=== PATIENT | female | born 1945 | race Caucasian/White ===

== ENCOUNTER 2019-03-17 15:55 | Emergency (ER) | payer MEDICARE, MEDICAID ==
[2019-03-17 16:48] LABS: BASOPHILS % (AUTO) 0.5 %; EOSINOPHILS % (AUTO) 0.1 %; HGB - HEMOGLOBIN 13.6 g/dL (12.0-16.0); LYMPHOCYTES # (AUTO) 0.6 10^3/uL (1.5-3.5); LYMPHOCYTES % (AUTO) 9.2 %; MEAN CORPUSCULAR HEMOGLOBIN 30.8 pg (27.0-31.0); MEAN CORPUSCULAR HGB CONC 33.3 g/dL (32.0-36.0); MEAN CORPUSCULAR VOLUME 92.6 fL (81.0-99.0); MEAN PLATELET VOLUME 7.5 fL (7.9-10.8); MONOCYTES # (AUTO) 0.3 10^3/uL (0.0-1.0); MONOCYTES % (AUTO) 4.3 %; NEUTROPHILS # (AUTO) 5.9 10^3/uL (1.5-6.6); NEUTROPHILS % (AUTO) 85.9 %; PLT - PLATELET COUNT 245 10^3/uL (130-450); RED BLOOD COUNT 4.41 10^6/uL (4.20-5.40); RED CELL DISTRIBUTION WIDTH 13.3 % (12.0-15.0); WHITE BLOOD COUNT 6.8 x10^3/uL (4.8-10.8)
[2019-03-17 17:01] LABS: ALBUMIN 4.7 g/dL (3.2-5.5); ALBUMIN/GLOBULIN RATIO 1.6 (1.0-2.2); BILIRUBIN,TOTAL 0.7 mg/dL (0.2-1.0); CALCIUM 9.4 mg/dL (8.5-10.3); CREATININE 0.6 mg/dL (0.4-1.0); TOTAL PROTEIN 7.7 g/dL (6.7-8.2)
[2019-03-17 17:19] LABS: BILIRUBIN,URINE NEGATIVE (NEGATIVE); GLUCOSE, URINE (UA) NEGATIVE (NEGATIVE); KETONES,URINE (UA) 15 mg/dL (NEGATIVE); LEUKOCYTE ESTERASE, URINE NEGATIVE (NEGATIVE); NITRITE,URINE NEGATIVE (NEGATIVE); OCCULT BLOOD,URINE NEGATIVE (NEGATIVE); PH,URINE 5.5 PH (5.0-7.5); PROTEIN,URINE NEGATIVE (NEGATIVE); UROBILINOGEN,URINE 0.2 (NORMAL) E.U./dL (NORMAL)
[2019-03-17 17:22] LABS: CLARITY,URINE CLEAR (CLEAR)
[2019-03-17] MEDS ORDERED: KETOROLAC 15 MG/ML VIAL IVP STA (17:51)
[2019-03-17] MEDS ORDERED: LACTATED RINGERS 2,000 ML IV STA (17:51)
--- NOTE | 2019-03-17 17:53 | ED Physician Documentation ---
PD HPI ABD PAIN - Stated complaint Stated Complaint: FEMALE - Chief complaint Chief Complaint: Abd Pain - History obtained from History obtained from: Patient - History of Present Illness Timing - onset: Today (73-year-old woman is no other chronic medical conditions presents with stomach cramps and diarrhea that started early this morning. She denies recent travel, antibiotics, fevers, or sick contacts.) Review of Systems Ten Systems: 10 systems reviewed and negative Constitutional: denies: Fever, Chills GI: reports: Abdominal Pain, Nausea, Diarrhea. denies: Vomiting, Constipation, Hematemesis, Bloody / black stool PD PAST MEDICAL HISTORY - Past Medical History Past Medical History: No - Allergies Allergies/Adverse Reactions: Allergies Allergy/AdvReac Type Severity Reaction Status Date / Time Penicillins Allergy Emesis Verified 03/17/19 16:31 - Living Situation Living Arrangement: reports: Assisted living - Social History Does the pt smoke?: No PD ED PE NORMAL - Vitals Vital signs reviewed: Yes - General General: Alert and oriented X 3, No acute distress - Abdomen Abdomen: Normal bowel sounds, Soft, Non tender - Neuro Neuro: Alert and oriented X 3, Normal speech - Psych Psych: Normal mood, Normal affect Results - Vitals Vitals: Vital Signs - 24 hr 03/17/19 03/17/19 03/17/19 16:28 18:38 18:49 Temperature 37.4 C 37.3 C Heart Rate 96 68 64 Respiratory 15 16 18 Rate Blood Pressure 132/70 H 116/56 L 116/59 L O2 Saturation 97 96 98 Oxygen O2 Source Room air - Labs Labs: Laboratory Tests 03/17/19 03/17/19 03/17/19 16:30 16:43 16:43 WBC 6.8 RBC 4.41 Hgb 13.6 Hct 40.8 MCV 92.6 MCH 30.8 MCHC 33.3 RDW 13.3 Plt Count 245 MPV 7.5 L Neut # (Auto) 5.9 Lymph # (Auto) 0.6 L [place] # (Auto) 0.3 Eos # (Auto) 0.0 Baso # (Auto) 0.0 Absolute Nucleated RBC 0.00 Nucleated RBC % 0.0 Sodium 136 Potassium 3.4 L Chloride 103 Carbon Dioxide 22 Anion Gap 11.0 BUN 12 Creatinine 0.6 Estimated GFR (MDRD) 99 Glucose 112 H Calcium 9.4 Total Bilirubin 0.7 AST 18 ALT 16 Alkaline Phosphatase 64 Total Protein 7.7 Albumin 4.7 Globulin 3.0 Albumin/Globulin Ratio 1.6 Lipase 32 Urine Color YELLOW Urine Clarity CLEAR Urine pH 5.5 Ur Specific Mineral 1.020 Urine Protein NEGATIVE Urine Glucose (UA) NEGATIVE Urine Ketones 15 H Urine Occult Blood NEGATIVE Urine Nitrite NEGATIVE Urine Bilirubin NEGATIVE Urine Urobilinogen 0.2 (NORMAL) Ur Leukocyte Esterase NEGATIVE Ur Microscopic Review NOT INDICATED Urine Culture Comments NOT INDICATED PD MEDICAL DECISION MAKING - ED course ED course: 73-year-old woman with diarrhea and cramps. No risk factors for bacterial or C. difficile cause. She was unable to produce a stool sample here. After the administration of IV fluids and Toradol she felt much better. Departure - Departure Disposition: 01 Home, Self Care Clinical Impression: Diarrhea Condition: Good Record reviewed to determine appropriate education?: Yes Instructions: ED Diarrhea Viral Comments: Return if not better in 24 hours, anytime if worse or if you develop fevers or severe pain. Discharge Date/Time: 03/17/19 19:02
[2019-03-17 18:49] VITALS: BP 116/59
== END 2019-03-17 19:02 | disposition home or self-care (01) ==
LOC: ED 15:55
DX: R19.7 Diarrhea, unspecified (principal); R10.9 Unspecified abdominal pain; R11.0 Nausea
CPT/HCPCS: 36415; 80053; 81003; 83690; 85025; 96374; 99283; J7120; 81001; 87086

== ENCOUNTER 2019-04-28 08:31 | Outpatient (CLI) | payer MEDICARE, MEDICAID ==
[2019-04-28 12:53] LABS: BASOPHILS # (AUTO) 0.1 10^3/uL (0.0-0.1); BASOPHILS % (AUTO) 1.2 %; EOSINOPHILS # (AUTO) 0.1 10^3/uL (0.0-0.7); EOSINOPHILS % (AUTO) 1.8 %; HGB - HEMOGLOBIN 12.9 g/dL (12.0-16.0); LYMPHOCYTES % (AUTO) 29.6 %; MEAN CORPUSCULAR HEMOGLOBIN 31.3 pg (27.0-31.0); MEAN CORPUSCULAR HGB CONC 32.8 g/dL (32.0-36.0); MEAN CORPUSCULAR VOLUME 95.4 fL (81.0-99.0); MONOCYTES # (AUTO) 0.7 10^3/uL (0.0-1.0); MONOCYTES % (AUTO) 10.1 %; NEUTROPHILS # (AUTO) 3.8 10^3/uL (1.5-6.6); NEUTROPHILS % (AUTO) 56.8 %; PLT - PLATELET COUNT 245 10^3/uL (130-450); RED BLOOD COUNT 4.12 10^6/uL (4.20-5.40); RED CELL DISTRIBUTION WIDTH 13.3 % (12.0-15.0); WHITE BLOOD COUNT 6.6 x10^3/uL (4.8-10.8)
[2019-04-28 13:19] LABS: ALBUMIN 4.7 g/dL (3.2-5.5); ALBUMIN/GLOBULIN RATIO 1.5 (1.0-2.2); ALKALINE PHOSPHATASE 77 IU/L (42-121); ALT ALANINE AMINOTRANSFERASE 18 IU/L (10-60); AST ASPARTATE AMINOTRANSFERASE 23 IU/L (10-42); BILIRUBIN,TOTAL 1.4 mg/dL (0.2-1.0); BUN - BLOOD UREA NITROGEN 13 mg/dL (6-20); CALCIUM 9.6 mg/dL (8.5-10.3); CARBON DIOXIDE - CO2 23 mmol/L (21-32); CHLORIDE 102 mmol/L (101-111); CHOL/HDL RATIO 1.8 (<4.4); CHOLESTEROL 211 mg/dL; CREATININE 0.8 mg/dL (0.4-1.0); GFR - MDRD 71 (>89); GLUCOSE 113 mg/dL (70-100); HDL CHOLESTEROL 118 mg/dL; LDL CHOLESTEROL,CALCULATED 80 mg/dL; LDL/HDL RATIO 0.7 (<4.4); SODIUM 136 mmol/L (135-145); TOTAL PROTEIN 7.9 g/dL (6.7-8.2); VLDL CHOLESTEROL 13 mg/dL
[2019-04-28 13:22] LABS: THYROID STIMULATING HORMONE 2.1 uIU/mL (0.34-5.60)
[2019-04-28 13:34] LABS: FOLATE 15.97 ng/mL (5.90 - >24.8)
== END 2019-04-28 08:32 | disposition home or self-care (01) ==
LOC: LAB.WCP 08:31
PROVIDERS: ATTEND Physician Assistant
DX: G60.9 Hereditary and idiopathic neuropathy, unspecified (principal); E78.5 Hyperlipidemia, unspecified; R41.3 Other amnesia
CPT/HCPCS: 36415; 80053; 80061; 82607; 82746; 83721; 84443; 85025

== ENCOUNTER 2020-02-28 09:29 | Outpatient (CLI) | payer MEDICARE, MEDICAID | END 2020-02-28 09:30 | disposition critical access hospital (66) | LOC: EMS 09:29 | PROVIDERS: ATTEND Surgery | DX: R47.9 Unspecified speech disturbances (principal); R29.810 Facial weakness | CPT/HCPCS: A0425; A0429 ==

== ENCOUNTER 2020-02-28 09:49 | Inpatient (IN) | payer MEDICARE, MEDICAID ==
--- NOTE | 2020-02-28 10:18 | CT Report ---
Reason: onset aphasia/facial droop Procedure Date: 02/28/2020 Accession Number: [id number] / [id number] Procedure: CT - Head W/O Stroke Protocol CPT Code: Final Report FULL RESULT: EXAM: CT HEAD EXAM DATE: 02/28/2020 10:08 AM. CLINICAL HISTORY: 74-year-old woman with aphasia and right facial droop. COMPARISON: None. TECHNIQUE: Multiaxial CT images were obtained from the foramen magnum to the vertex. Reformats: Sagittal and coronal. IV contrast: None. In accordance with CT protocol optimization, one or more of the following dose reduction techniques were utilized for this exam: automated exposure control, adjustment of mA and/or KV based on patient size, or use of iterative reconstructive technique. FINDINGS: Parenchyma: No hemorrhage. Roldan-white differentiation is intact. ASPECTS: 10. Defect in the left cerebral hemisphere is consistent with a remote lacunar infarct. Ventricles and Extra-axial Spaces: Ventricles are symmetric and normal in size for age. No extra-axial hemorrhage or fluid collection. Orbits: Unremarkable except for bilateral lens replacement surgery. Sinuses: Paranasal sinuses and mastoid air cells are clear. Extracranial Soft Tissues and Bones: Soft tissues are unremarkable. No fractures. IMPRESSION: 1. No acute intracranial abnormality. Specifically, no evidence of acute infarct, hemorrhage, or mass lesion at this time. 2. 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 RADIA The critical test notification system was initiated by Dr. Carmine Lewis at 10:14 AM on 02/28/2020. The above critical test findings were discussed with Scott Solis by Dr. Carmine Lewis at 10:16 AM on 02/28/2020.
[2020-02-28] MEDS ORDERED: IOVERSOL 320 100 ML VIAL IVP ONE ×2 (10:24→14:17)
--- NOTE | 2020-02-28 10:33 | ED Physician Documentation ---
PD HPI FOCAL NEURO - Stated complaint Stated Complaint: POSS STROKE - Chief complaint Chief Complaint: Neuro - History obtained from History obtained from: Patient - History of Present Illness Timing - onset: Last night (The patient was last seen normal last evening at 10 PM. This morning upon being awakened by staff, she is noted to be aphasic and a right facial droop. She denied any headache. No apparent fall or injury. There was no obvious notable weakness of the arm or leg. This is unusual for her as she is usually able to talk. No known prior strokes.), Unknown Timing - details: Still present, Other (unknown onset pattern) Weakness: Face, Right. No: Arm, Leg Associated symptoms: No: Headache, Nausea / vomiting Contributing factors: negative: Anticoagulated, Atrial fibrillation Baseline status: positive: A&OX3, ambulatory, indep, Mildly confused Similar symptoms before: Has not had sx before Review of Systems Unable to obtain: Other (she is able to answer with nodding yes and no) Constitutional: denies: Fever Nose: denies: Rhinorrhea / runny nose, Congestion Throat: denies: Sore throat Respiratory: denies: Cough GI: denies: Vomiting, Diarrhea Neurologic: reports: Focal weakness. denies: Near syncope, Headache, Head injury Immunocompromised: denies: Immunocompromised PD PAST MEDICAL HISTORY - Past Medical History Cardiovascular: None Respiratory: None Neuro: Dementia (mild) Endocrine/Autoimmune: None - Past Surgical History Past Surgical History: Yes HEENT: Tonsil/Adenoidectomy - Present Medications Home Medications: Ambulatory Orders Medication Instructions Recorded Confirmed Acetaminophen [Tylenol] 325 - 650 mg PO TID PRN 02/28/20 02/28/20 Amlodipine Besylate 10 mg PO DAILY 02/28/20 02/28/20 Atorvastatin Calcium 40 mg PO QPM 02/28/20 02/28/20 Benazepril HCl 20 mg PO DAILY 02/28/20 02/28/20 Cholecalciferol (Vitamin D3) 2,000 unit PO DAILY 02/28/20 02/28/20 [Vitamin D3] Cyanocobalamin (Vitamin B-12) 1,000 mcg PO BID 02/28/20 02/28/20 [Vitamin B-12 (1000 mcg sublingual)] Donepezil HCl 10 mg PO QPM 02/28/20 02/28/20 Gabapentin 600 mg PO BID 02/28/20 02/28/20 Prochlorperazine [Compazine] 5 mg PO TID PRN 02/28/20 02/28/20 Tramadol HCl 50 mg PO DAILY PRN 02/28/20 02/28/20 Triamcinolone 0.1% Cream [Kenalog 1 applic TOP QPM PRN 02/28/20 02/28/20 0.1% Cream] - Allergies Allergies/Adverse Reactions: Allergies Allergy/AdvReac Type Severity Reaction Status Date / Time Penicillins Allergy Emesis Verified 03/17/19 16:31 aspirin AdvReac Unknown Verified 02/28/20 10:18 codeine AdvReac Unknown Verified 02/28/20 10:19 hydrocodone [From Vicodin] AdvReac Nausea Verified 02/28/20 10:20 morphine AdvReac Nausea Verified 02/28/20 10:20 shellfish derived AdvReac Unknown Verified 02/28/20 10:20 thyme AdvReac Unknown Verified 02/28/20 10:20 - Social History Does the pt smoke?: No Smoking Status: Never smoker Does the pt drink ETOH?: No Does the pt have substance abuse?: No - Family History Family history: denies: Cerebral aneurysm PD ED PE NORMAL - Vitals Vital signs reviewed: Yes - General General: Alert and oriented X 3, Well developed/nourished - HEENT HEENT: Atraumatic, Pharynx benign - Neck Neck: Supple, no meningeal sign, No adenopathy - Cardiac Cardiac: RRR, No murmur - Respiratory Respiratory: Clear bilaterally - Abdomen Abdomen: Soft, Non tender - Derm Derm: Normal color, Warm and dry - Neuro Neuro: Alert and oriented X 3, Normal speech, Other (right facial droop. Unable to speak verbally. ) NIHSS - Level of Consciousness Level of consciousness: (0) Alert, Keenly responsive LOC Questions: (0) Answers both Q's correct LOC Commands: (0) Performs both correctly - Gaze Best Gaze: (0) Normal - Visual Visual: (0) No loss - Facial Palsy Facial Palsy: (2) Partial paralysis - Motor Arms (both separate) Motor Arm (right): (0) No drift Motor Arm (left): (0) No drift - Motor Legs (both separate) Motor Leg (right): (0) No drift Motor Leg (left): (0) No drift - Limb Ataxia Limb Ataxia: (0) Absent - Sensory Sensory: (0) Normal - Best Language Best Language: (2) Severe aphasia - Dysarthria Dysarthria: (0) Normal - Extinction and Inattention (formally neg Extinction and inattention: (0) No abnormality - Total Score/Results Total Score/Result: 4 Results - Vitals Vitals: Vital Signs - 24 hr 02/28/20 02/28/20 02/28/20 10:10 10:16 10:48 Temperature 36.8 C 36.7 C Heart Rate 89 86 80 Respiratory 16 16 10 L Rate Blood Pressure 123/64 117/36 L 123/57 L O2 Saturation 95 97 100 Oxygen O2 Source Room air - Labs Labs: Laboratory Tests 02/28/20 02/28/20 02/28/20 10:30 10:30 10:30 WBC 5.3 RBC 3.84 L Hgb 12.8 Hct 36.8 L MCV 95.8 MCH 33.3 H MCHC 34.8 RDW 12.1 Plt Count 214 MPV 9.0 Neut # (Auto) 3.1 Lymph # (Auto) 1.6 [place] # (Auto) 0.5 Eos # (Auto) 0.0 Baso # (Auto) 0.1 Absolute Nucleated RBC 0.00 Nucleated RBC % 0.0 PT 10.8 INR 0.9 APTT 30.5 Sodium 134 L Potassium 3.9 Chloride 102 Carbon Dioxide 21 Anion Gap 11.0 BUN 12 Creatinine 0.6 Estimated GFR (MDRD) 98 Glucose 112 H Calcium 8.8 Magnesium 1.8 Total Bilirubin 0.7 AST 18 ALT 15 Alkaline Phosphatase 68 Troponin I High Sens Total Protein 7.1 Albumin 4.1 Globulin 3.0 Albumin/Globulin Ratio 1.4 Lipase 30 02/28/20 10:30 WBC RBC Hgb Hct MCV MCH MCHC RDW Plt Count MPV Neut # (Auto) Lymph # (Auto) [place] # (Auto) Eos # (Auto) Baso # (Auto) Absolute Nucleated RBC Nucleated RBC % PT INR APTT Sodium Potassium Chloride Carbon Dioxide Anion Gap BUN Creatinine Estimated GFR (MDRD) Glucose Calcium Magnesium Total Bilirubin AST ALT Alkaline Phosphatase Troponin I High Sens 2.4 Total Protein Albumin Globulin Albumin/Globulin Ratio Lipase - Rads (name of study) head CT Radiology: Prelim report reviewed (no ICH), Discussed with rads, See rad report head and neck angio Radiology: Prelim report reviewed, Discussed with rads (distal MCA occlusion at distal M2/M3 level on left, which would be c/w her symptoms. ), See rad report PD MEDICAL DECISION MAKING - ED course Complexity details: reviewed results, re-evaluated patient (apparent new stroke. ), considered differential, d/w patient, d/w family (I talked with her 2 brothers by phone to update on the findings and treatment plan (after asking patient). ), d/w construction safety consultant ([facility] - not interventionable as too distal, and not candidate for TPA based on unknown onset time. 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
--- NOTE | 2020-02-28 10:37 | CT Report ---
Reason: right facial droop/aphasia Procedure Date: 02/28/2020 Accession Number: [id number] / [id number] Procedure: CT - ANGIO HEAD W/WO CPT Code: Final Report FULL RESULT: EXAM: CT ANGIOGRAM HEAD. CT SCAN OF THE HEAD WITH CONTRAST. EXAM DATE: 02/28/2020 10:12 AM CLINICAL HISTORY: 74-year-old woman with right facial droop and aphasia. COMPARISON: HEAD W/O STROKE PROTOCOL 02/28/2020 9:54 AM. TECHNIQUE: - CT Scan Head: Using a multidetector scanner, axial images were acquired from the foramen magnum to the skull vertex prior to and following contrast administration. - CT Angiogram: Using a multidetector scanner, high-resolution axial images were acquired from the skull base through vertex following rapid infusion of intravenous contrast. Reformats: Multiplanar MIP reformats were reconstructed. NASCET criteria used for stenosis measurement. IV Contrast: 80 cc OPTIRAY 320. In accordance with CT protocol optimization, one or more of the following dose reduction techniques were utilized for this exam: automated exposure control, adjustment of mA and/or KV based on patient size, or use of iterative reconstructive technique. FINDINGS: CTA HEAD: RIGHT: - Visualized Internal Carotid: Patent without significant stenosis or aneurysm. There is mild atherosclerotic plaque along the siphon. - Anterior Cerebral: Patent without significant stenosis or aneurysm. The A1 segment is hypoplastic, a normal variant. Distal branches are primarily supplied by the anterior communicating artery. - Middle Cerebral: Patent without significant stenosis or aneurysm. - Posterior Cerebral: Patent without significant stenosis or aneurysm. The artery is primarily supplied by the posterior communicating artery, but there is a small, patent P1 segment. - Posterior Communicating: Patent. No aneurysm. - Visualized Vertebral: Patent without significant stenosis or dissection. Mild atherosclerotic plaque is present along the intradural segment. The PICA is patent. LEFT: - Visualized Internal Carotid: Patent without significant stenosis or aneurysm. There is mild atherosclerotic plaque along the siphon. - Anterior Cerebral: Patent without significant stenosis or aneurysm. - Middle Cerebral: The M1 and proximal M2 segments are patent without significant stenosis. There is abrupt narrowing and occlusion of an M2-M3 junction in the anterior to mid sylvian fissure (for example, image 49, series 11 and images 144-152, series 5). - Posterior Cerebral: Patent without significant stenosis or aneurysm. The artery is primarily supplied by the posterior communicating artery, but there is a small, patent P1 segment. - Posterior Communicating: Patent. No aneurysm. - Visualized Vertebral: Patent without significant stenosis or dissection. The PICA is patent. CENTRAL: - Anterior Communicating: Patent. No aneurysm. - Basilar: Patent without significant stenosis, dissection, or aneurysm. Dural Venous Sinuses and Major Central Veins: Patent. POSTCONTRAST HEAD: No abnormal enhancement. IMPRESSION: 1. 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 No proximal large vessel occlusion. RADIA The call report notification system was initiated by Dr. Carmine Lewis at 10:32 AM on 02/28/2020. The above call report findings were discussed with Scott Solis by Dr. Carmine Lewis at 10:34 AM on 02/28/2020.
[2020-02-28 10:39] LABS: BASOPHILS # (AUTO) 0.1 10^3/uL (0.0-0.1); BASOPHILS % (AUTO) 0.9 %; EOSINOPHILS % (AUTO) 0.8 %; HGB - HEMOGLOBIN 12.8 g/dL (12.0-16.0); LYMPHOCYTES # (AUTO) 1.6 10^3/uL (1.5-3.5); LYMPHOCYTES % (AUTO) 29.9 %; MEAN CORPUSCULAR HEMOGLOBIN 33.3 pg (27.0-31.0); MEAN CORPUSCULAR HGB CONC 34.8 g/dL (32.0-36.0); MEAN CORPUSCULAR VOLUME 95.8 fL (81.0-99.0); MONOCYTES # (AUTO) 0.5 10^3/uL (0.0-1.0); MONOCYTES % (AUTO) 9.5 %; NEUTROPHILS # (AUTO) 3.1 10^3/uL (1.5-6.6); NEUTROPHILS % (AUTO) 58.7 %; PLT - PLATELET COUNT 214 10^3/uL (130-450); RED BLOOD COUNT 3.84 10^6/uL (4.20-5.40); RED CELL DISTRIBUTION WIDTH 12.1 % (12.0-15.0); WHITE BLOOD COUNT 5.3 x10^3/uL (4.8-10.8)
--- NOTE | 2020-02-28 10:40 | CT Report ---
Reason: right facial droop/aphasia Procedure Date: 02/28/2020 Accession Number: [id number] / [id number] Procedure: CT - ANGIO NECK W CPT Code: Final Report FULL RESULT: EXAM: CT ANGIOGRAM NECK EXAM DATE: 02/28/2020 10:12 AM. CLINICAL HISTORY: 74-year-old woman with right facial droop and aphasia. COMPARISON: HEAD W/O STROKE PROTOCOL 02/28/2020 9:54 AM. TECHNIQUE: Routine axial helical imaging was performed from the skull base through the aortic arch. Reconstructions: Routine multiplanar 3D MIP reconstructions. IV Contrast: 80 cc OPTIRAY 320. Evaluation of arterial stenosis is based on a NASCET method of measurement. In accordance with CT protocol optimization, one or more of the following dose reduction techniques were utilized for this exam: automated exposure control, adjustment of mA and/or KV based on patient size, or use of iterative reconstructive technique. FINDINGS: RIGHT: - Common and Internal Carotid: Patent without signficant stenosis. There is mild calcified atherosclerotic plaque at the bifurcation. Stenosis by NASCET criteria: 0%. The distal cervical ICA is tortuous, but no evidence of dissection. - External Carotid: Unremarkable. - Vertebral: Patent without significant stenosis. No evidence of dissection. LEFT: - Common and Internal Carotid: Patent without signficant stenosis. There is mild calcified atherosclerotic plaque at the bifurcation. Stenosis by NASCET criteria: 0%. The cervical ICA is tortuous, but no evidence of dissection. - External Carotid: Unremarkable. - Vertebral: Patent without significant stenosis. No evidence of dissection. SOFT TISSUES AND BONES: Small hypoattenuating nodules are present in the right lobe of the thyroid. Otherwise, visualized soft tissues are unremarkable. Lung apices are clear. No evidence of acute fracture or malalignment of the cervical spine. IMPRESSION: 1. Carotid and vertebral arteries are patent without significant stenosis or dissection. RADIA The above call report findings were discussed with Scott Solis by Dr. Carmine Lewis at 10:34 AM on 02/28/2020.
[2020-02-28 10:47] LABS: INR 0.9 (0.8-1.2); PT - PROTHROMBIN TIME 10.8 secs (9.9-12.6)
[2020-02-28 10:51] LABS: ALBUMIN 4.1 g/dL (3.2-5.5); ALBUMIN/GLOBULIN RATIO 1.4 (1.0-2.2); BILIRUBIN,TOTAL 0.7 mg/dL (0.2-1.0); CALCIUM 8.8 mg/dL (8.5-10.3); CREATININE 0.6 mg/dL (0.4-1.0); MAGNESIUM 1.8 mg/dL (1.7-2.8); TOTAL PROTEIN 7.1 g/dL (6.7-8.2)
[2020-02-28 10:54] LABS: PARTIAL THROMBOPLASTIN TIME 30.5 secs (24.9-33.3)
[2020-02-28] MEDS ORDERED: ONDANSETRON 4 MG/2 ML VIAL IVP PRN (11:10)
[2020-02-28] MEDS ORDERED: ACETAMINOPHEN 325 MG TABLET PO PRN (11:10)
[2020-02-28] MEDS ORDERED: SODIUM CHLORIDE FLUSH 0.9% 10 ML SYRINGE IVP PRN (11:10)
--- NOTE | 2020-02-28 11:42 | HISTORY & PHYSICAL EXAMINATION ---
Chief Complaint - Chief Complaint Chief Complaint: Difficulty speaking History of Present Illness - Admitted From Admitted From:: [facility] - History Obtained From Records Reviewed: Yes History obtained from: Patient, ER Physician, EMR - History of Present Illness HPI Comment/Other: This is a 74-year-old female with a past medical history significant for hypertension, neuropathy, dementia who presents from [facility] due to difficulty speaking. He was last seen normal yesterday evening at around 10 PM. This morning when she was awakened by the staff, she was found to have a right-sided facial droop and expressive aphasia. The patient states that she has never had similar symptoms in the past. She does not recall having a stroke before. She denies any headaches, blurry vision. She does have numbness which is chronic for her and for which she takes gabapentin. She reports no weakness in her upper or lower extremities. Denies any fevers, chills, nausea, vomiting, chest pain, dyspnea, rash. In the emergency department, she is on be afebrile temperature of 36.8 C. Her heart rate was 89. Her blood pressure is 123/64. She was not tachypneic and saturating well on room air. CT of the head showed no acute abnormalities but did show a remote lacunar infarct in the left cerebellar hemisphere. CT of the head showed occlusion of a distal left MCA M2 to M3 junction but no proximal large vessel occlusion. CTA of the neck was unremarkable. Her labs were unremarkable. Given her presentation and concern for stroke, medicine was consulted for admission. I did discuss goals of care the patient she would like to be a full code. History - Past Medical History Cardiovascular: reports: Hypertension, High cholesterol Neuro: reports: Peripheral neuropathy, Other (Mild cognitive impairment) - Past Surgical History HEENT: reports: Tonsil/Adenoidectomy - Family & Social History Family History Comment/Other: She reports her father had hypertension but otherwise not recall any family history. Living arrangement: Assisted living Social History Notes: She resides at [facility] and had living there for nearly 2 years. She does not smoke and drinks alcohol socially. She previously lived in [place] but now lives here to be close to her brother. - Substance History Use: Uses substance without health or social issues: NONE Meds/Allgy - Home Medications Home Medications: Ambulatory Orders Medication Instructions Recorded Confirmed Acetaminophen [Tylenol] 325 - 650 mg PO TID PRN 04/29/20 04/29/20 Amlodipine Besylate 10 mg PO DAILY 02/28/20 02/28/20 Atorvastatin Calcium 40 mg PO QPM 02/28/20 02/28/20 Benazepril HCl 20 mg PO DAILY 02/28/20 02/28/20 Cholecalciferol (Vitamin D3) 2,000 unit PO DAILY 02/28/20 02/28/20 [Vitamin D3] Cyanocobalamin (Vitamin B-12) 1,000 mcg PO BID 02/28/20 02/28/20 [Vitamin B-12 (1000 mcg sublingual)] Donepezil HCl 10 mg PO QPM 02/28/20 02/28/20 Gabapentin 600 mg PO BID 02/28/20 02/28/20 Prochlorperazine [Compazine] 5 mg PO TID PRN 02/28/20 02/28/20 Tramadol HCl 50 mg PO DAILY PRN 02/28/20 02/28/20 Triamcinolone 0.1% Cream [Kenalog 1 applic TOP QPM PRN 02/28/20 02/28/20 0.1% Cream] - Allergies Allergies/Adverse Reactions: Allergies Allergy/AdvReac Type Severity Reaction Status Date / Time Penicillins Allergy Emesis Verified 03/17/19 16:31 aspirin AdvReac Unknown Verified 02/28/20 10:18 codeine AdvReac Unknown Verified 02/28/20 10:19 hydrocodone [From Vicodin] AdvReac Nausea Verified 02/28/20 10:20 morphine AdvReac Nausea Verified 02/28/20 10:20 shellfish derived AdvReac Unknown Verified 02/28/20 10:20 thyme AdvReac Unknown Verified 02/28/20 10:20 Review of Systems - Constitutional Constitutional: denies: Fatigue, Fever, Weakness - Eyes Eyes: denies: Blurred vision - Cardiovascular Cariovascular: denies: Chest pain, Exertional dyspnea, Decr. exercise tolerance - Respiratory Respiratory: denies: Cough, SOB at rest, SOB with exertion - Gastrointestinal Gastrointestinal: denies: Abdominal pain, Nausea, Vomiting - Genitourinary Genitourinary: denies: Dysuria, Frequency, Urgency - Musculoskeletal Musculoskeletal: denies: Muscle pain, Limited range of motion, Muscle weakness - Integumentary Integumentary: denies: Rash - Neurological Neurological: reports: Numbness, Slurred speech. denies: General weakness, Focal weakness, Headache, Dizziness, Memory problems, Pre-existing deficit, Abnormal gait - All Other Systems All Other Systems: reports: Reviewed and negative Prior Level of Functionality: She resides at [facility] living but is independent. Exam - Vital Signs Reviewed Vital Signs: Yes Vital Signs: Vital Signs x48h Temp Pulse Resp BP Pulse Ox 02/28/20 11:16 68 13 115/62 96 02/28/20 10:48 80 10 L 123/57 L 100 02/28/20 10:16 36.7 C 86 16 117/36 L 97 02/28/20 10:10 36.8 C 89 16 123/64 95 - Physical Exam General Appearance: positive: No acute distress, Alert Eyes Bilateral: positive: Normal inspection, Conjunctivae nml ENT: positive: ENT inspection nml Neck: positive: Nml inspection Respiratory: positive: No respiratory distress. negative: Wheezes, Rales Cardiovascular: positive: Regular rate & rhythm, No murmur. negative: Tachycardia, Bradycardia, Systolic murmur Abdomen: positive: Non-tender, No distention. negative: Tenderness, Rebound Skin: positive: Color nml, No rash, Warm, Dry Extremities: positive: Full ROM, No pedal edema Neurologic/Psychiatric: positive: Oriented x3, Facial droop (Slight right-sided facial droop.), Slurred/abnml speech (Initially had significant expressive aphasia on my examination and cannot even say her name but by the end of our conversation, she was able to provide a history.), Other (She is able to move all 4 extremities has 5 out of 5 motor strength. Reports diminished sensation in her bilateral feet but otherwise sensation is intact.). negative: Disoriented to person, Disoriented to place, Disoriented to time Conclusion/Plan - Problem List (1) CVA (cerebral vascular accident) Conclusion/Plan: Presents with expressive aphasia and slight right-sided facial droop. Her aphasia is improving and she is able to speak in short sentences. Osbaldo is intact in all [address] the head showed an old left cerebellar hemisphere but no acute infarct. CT of the head showed occlusion of distal left MCA M2 to M3 junction. She does have an allergy to aspirin she is not sure what it is and has not taken it for many years. Will attempt to confirm this allergy with her assisted living facility. If she is unable to receive aspirin, then we will start her on Plavix. Will increase Lipitor to 80 mg. Obtain MRI of the brain. Check echocardiogram and monitor her on telemetry. Will check lipid panel and A1c. Neurochecks. Swallow evaluation given her slight facial droop expressive aphasia. Qualifiers: Qualified Code(s): I63.312 - Cerebral infarction due to thrombosis of left middle cerebral artery (2) Expressive aphasia Conclusion/Plan: This is likely secondary to a stroke. She does appear to be improving and initially is unable to even say her name but is now able to speak in short sentences. Continue management as per above. (3) Hypertension Conclusion/Plan: History of hypertension for which he takes benazepril and amlodipine. She is currently normotensive. We will hold her home antihypertensives to allow for permissive hypertension given the concern for stroke. (4) Neuropathy Conclusion/Plan: Stable. We will continue her home gabapentin. (5) Mild cognitive impairment Conclusion/Plan: History of mild cognitive impairment for which she takes Aricept. We will continue this while she is hospitalized. - Lab Results Lab results reviewed: Yes Fish Bones: 02/28/20 10:30 02/28/20 10:30 - Diagnostic Imaging Results Diagnostic Imaging Results: positive: Final report reviewed - EKG Results EKG Interpreted Independently: Yes EKG Comparison: No prior EKG EKG Findings: EKG shows a sinus rhythm without any obvious ST segment changes. QTC is 455. Core Measures - Anticipated LOS I expect patient to be DC'd or transferred within 96 hours.: Yes - Issues Hospital Issues and Management Plan: 74-year-old female who presents with expressive aphasia and facial droop concerning for acute stroke. Will admit for MRI, echocardiogram, telemetry. Consult PT/OT/ST and social work - DVT/VTE - Prophylaxis VTE/DVT Device ordered at admit?: Yes VTE/DVT Prophylaxis med ordered at admit?: Yes - Stroke - Rehab Assessment Rehab services assessment to be ordered?: Yes
--- NOTE | 2020-02-28 11:46 | PHARMACY PROGRESS NOTE ---
- Best Possible Medication History Admit Date and Time: 02/28/20 1110 Processed by: Pharmacy Medication History completed: Yes Secondary Source(s): Facility MAR as ONLY source As the person ultimately responsible for medication therapy, providers are able to order a medication from an existing home medication list in [facility] via the "Reconcile Routine" prior to Confirmation of that medication by lab support technician. Such practice is discouraged except when the physician, in their clinical judgment, deems that a medical need exists for a medication without regard to previous use.
[2020-02-28] MEDS: LACTATED RINGERS 1,000 ML IV SCH (13:10)
[2020-02-28] MEDS ORDERED: CLOPIDOGREL 300 MG TABLET PO ONE (14:45)
[2020-02-28] MEDS: SODIUM CHLORIDE FLUSH 0.9% 10 ML SYRINGE IVP SCH (16:01)
--- NOTE | 2020-02-28 19:31 | MRI Report ---
Reason: Neuro deficit. Stroke. Procedure Date: 02/28/2020 Accession Number: [id number] / [id number] Procedure: MRI - Brain W/O CPT Code: Addended Final Report FULL RESULT: EXAM: MRI BRAIN WITHOUT CONTRAST EXAM DATE: 02/28/2020 06:49 PM. CLINICAL HISTORY: 74-year-old presenting with right-sided facial droop and difficulty speaking. Evaluate for intracranial pathology. COMPARISON: ANGIO HEAD W/WO 02/28/2020 10:01 AM ANGIO NECK W 02/28/2020 10:01 AM HEAD W/O STROKE PROTOCOL 02/28/2020 9:54 AM. TECHNIQUE: Multiplanar, multisequence T1-weighted and fluid-sensitive MR sequences of the brain were performed. Sequences optimized for routine evaluation. Other: None. IV Contrast: None. FINDINGS: Brain Volume: Normal for age. Parenchyma/Dura: No acute parenchymal hemorrhage, mass, or midline shift. There is a small to moderate region of restricted diffusion involving the left frontal lobe with involvement of the left frontal operculum, left temporal operculum, and left lateral insula. Overall area of restricted diffusion measures at least 21 x 29 mm (series 505, image 128). There is additional punctate foci of restricted diffusion involving the posterior left frontal lobe measuring up to 4 mm (series 505, age 128). There is associated T2/FLAIR signal hyperintensity. No evidence of hemorrhagic transformation. There is mild bilateral areas of T2/FLAIR signal hyperintensity seen. No areas of abnormal parenchymal hemosiderin deposition. Ventricles/Cisterns: No hydrocephalus. No abnormal extra-axial fluid collection or hemorrhage. Orbits: Changes of bilateral lens replacement. Sella Turcica: The pituitary gland, cavernous sinuses, suprasellar cistern and optic chiasm are unremarkable. IAC: Symmetric and unremarkable. Vasculature: Normal signal flow void is seen in the major arterial structures at the skull base. Sinuses: Minimal paranasal sinus mucosal thickening. Mastoid air cells and middle ear cavities appear clear. Bones: No focal pathologic appearing marrow signal changes. Changes of hyperostosis frontalis internus. Other: None. IMPRESSION: 1. There is a small to moderate sized acute infarct noted within the left frontal lobe measuring at least 21 x 29 mm. No evidence of hemorrhagic transformation. Infarct is in a left MCA territory distribution. 2. No acute intracranial hemorrhage, mass, hydrocephalus, or midline shift. 3. Mild white matter changes seen that are nonspecific, but may represent sequela of chronic small vessel ischemic disease. RADIA The call report notification system was initiated by Dr. Armen Rea at 07:30 PM on 02/28/2020. ADDENDUM: 02/28/20 19:51 The above call report findings were discussed with Dr Troy by Dr. Armen Rea at 07:51 PM on 02/28/2020.
[2020-02-28] MEDS: GABAPENTIN 300 MG CAPSULE PO SCH (20:22)
[2020-02-28] MEDS: CYANOCOBALAMIN 500 MCG TABLET PO SCH (20:22)
[2020-02-28] MEDS: ATORVASTATIN 40 MG TABLET PO SCH (20:22)
[2020-02-28] MEDS: DONEPEZIL 5 MG TABLET PO SCH (20:22)
[2020-02-29] MEDS: LACTATED RINGERS 1,000 ML IV SCH (00:38)
[2020-02-29] MEDS: SODIUM CHLORIDE FLUSH 0.9% 10 ML SYRINGE IVP SCH ×4 (05:16→23:28)
[2020-02-29 05:58] LABS: BASOPHILS # (AUTO) 0.1 10^3/uL (0.0-0.1); BASOPHILS % (AUTO) 0.8 %; EOSINOPHILS % (AUTO) 0.5 %; HGB - HEMOGLOBIN 10.9 g/dL (12.0-16.0); LYMPHOCYTES # (AUTO) 1.7 10^3/uL (1.5-3.5); LYMPHOCYTES % (AUTO) 27.5 %; MEAN CORPUSCULAR HEMOGLOBIN 32.4 pg (27.0-31.0); MEAN CORPUSCULAR HGB CONC 33.7 g/dL (32.0-36.0); MEAN CORPUSCULAR VOLUME 96.1 fL (81.0-99.0); MEAN PLATELET VOLUME 9.1 fL (7.9-10.8); MONOCYTES # (AUTO) 0.6 10^3/uL (0.0-1.0); NEUTROPHILS # (AUTO) 3.7 10^3/uL (1.5-6.6); NEUTROPHILS % (AUTO) 60.9 %; PLT - PLATELET COUNT 169 10^3/uL (130-450); RED BLOOD COUNT 3.36 10^6/uL (4.20-5.40); RED CELL DISTRIBUTION WIDTH 12.6 % (12.0-15.0)
[2020-02-29 06:17] LABS: BUN - BLOOD UREA NITROGEN 8 mg/dL (6-20); CALCIUM 8.7 mg/dL (8.5-10.3); CARBON DIOXIDE - CO2 24 mmol/L (21-32); CHLORIDE 105 mmol/L (101-111); CHOL/HDL RATIO 2.1 (<4.4); CHOLESTEROL 169 mg/dL; CREATININE 0.6 mg/dL (0.4-1.0); GLUCOSE 116 mg/dL (70-100); HDL CHOLESTEROL 79 mg/dL; LDL CHOLESTEROL,CALCULATED 74 mg/dL; LDL/HDL RATIO 0.9 (<4.4); MAGNESIUM 1.6 mg/dL (1.7-2.8); PHOSPHORUS 3.2 mg/dL (2.5-4.6); SODIUM 138 mmol/L (135-145); VLDL CHOLESTEROL 16 mg/dL
[2020-02-29 06:24] LABS: HB2 TOTAL 10.9 g/dL; HEMOGLOBIN A1C 0.4 g/dL; HEMOGLOBIN A1C % 5.5 % (4.6-6.2)
[2020-02-29] MEDS: CLOPIDOGREL 75 MG TABLET PO SCH (08:29)
[2020-02-29] MEDS: MAGNESIUM OXIDE 400 MG TABLET PO SCH (08:29)
[2020-02-29] MEDS: CHOLECALCIFEROL 1,000 UNIT TABLET PO SCH (08:29)
[2020-02-29] MEDS: GABAPENTIN 300 MG CAPSULE PO SCH ×2 (08:29→20:26)
[2020-02-29] MEDS: CYANOCOBALAMIN 500 MCG TABLET PO SCH ×2 (08:29→20:26)
[2020-02-29] MEDS: ENOXAPARIN 40 MG/0.4 ML SYRINGE SUBQ SCH (08:30)
--- NOTE | 2020-02-29 09:20 | Discharge Plan ---
"Discharge Plan for SNF / JONATHAN - Discharge Plan And Transition Orders Problem Reviewed?: Yes Disposition: 03 SNF DC/Xfer Condition: Good Allergies and Adverse Reactions: Allergies Allergy/AdvReac Type Severity Reaction Status Date / Time Penicillins Allergy Emesis Verified 03/17/19 16:31 aspirin AdvReac Unknown Verified 02/28/20 10:18 codeine AdvReac Unknown Verified 02/28/20 10:19 hydrocodone [From Vicodin] AdvReac Nausea Verified 02/28/20 10:20 morphine AdvReac Nausea Verified 02/28/20 10:20 shellfish derived AdvReac Unknown Verified 02/28/20 10:20 thyme AdvReac Unknown Verified 02/28/20 10:20 Health Concerns: The patient was admitted to the hospital after there was concern for a stroke given her expressive aphasia and right-sided facial droop. Her expressive aphasia resolved and she feels that her speech has returned back to baseline. She still has a slight right-sided facial droop. MRI of the brain showed an acute infarct in the left frontal lobe. She was loaded with Plavix and continued on 25 mg of Plavix daily. She has not given aspirin given her allergy. Her Lipitor was increased to 80 mg every evening. An echocardiogram was obtained which was unremarkable. She has been in a sinus rhythm on telemetry. Plan of Treatment: She can continue taking Plavix 75 mg daily as well as Lipitor 80 mg every evening. She can continue to her Amlodipine but her Benazepril has been discontinued as her blood pressure has been stable. This can be resumed if need be on an outpatient basis when she follows up with her primary care physician. Care Goals: She should follow-up with her primary care physician within 1 week. - SNF / CORRECTION Transition Orders Admit to (Facility): [facility] Discharge Diagnosis: Stroke Hypertension Neuropathy Mild cognitive impairment Medicare Certification Statement: I certify that Post Hospital intermediate care is medically necessary on a continuing basis for any of the conditions for which she/he is receiving care during hospitalization. Notify PCP of admission and forward orders to primary provider for signature. Other Notification Orders: Call PCP immediately if patient develops dyspnea, chest pain/tightness or edema. Additional Bowel Program Orders: If no BM after 2 days, nurse may give M.O.M. 30ml PO PRN and/or ducolax Supp 1 MA and/or EDUAR 250mg P.O., and/or senna 1-2 tabs PO. On day 3 nurse may give repeat above order until residents constipation is resolved. Medication Orders: PLEASE REFER TO THE DISCHARGE MEDICATION LIST. Insulin Orders?: No - Medications New Prescriptions: Atorvastatin Calcium [Lipitor] 80 mg PO QPM #30 tablet Clopidogrel [Plavix] 75 mg PO DAILY #30 tablet - Diet Texture: Regular - Therapies | Activity Activity: No Restrictions Weight Bearing: Full Weight"
--- NOTE | 2020-02-29 10:42 | PROVIDER PROGRESS NOTE ---
Subjective - Prog Note Date Prog Note Date: 02/29/20 - Subjective Subjective: Reorts feeling well today. Feels her speech is back to baseline. Complains of no weakness. Still has numbness which is chronic for her from her neuropathy. No headache or blurry vision. Current Medications - Current Medications Current Medications: Active Medications Acetaminophen (Tylenol) 650 mg PO Q4HR PRN PRN Reason: Pain 1 to 4 Atorvastatin Calcium (Lipitor) 80 mg PO QPM [facility] Last Admin: 02/28/20 20:22 Dose: 80 mg Cholecalciferol (Vitamin D3) 2,000 unit PO DAILY [facility] Last Admin: 02/29/20 08:29 Dose: 2,000 unit Clopidogrel Bisulfate (Plavix) 75 mg PO DAILY [facility] Last Admin: 02/29/20 08:29 Dose: 75 mg Cyanocobalamin (Vitamin B-12) 1,000 mcg PO BID [facility] Last Admin: 02/29/20 08:29 Dose: 1,000 mcg Donepezil HCl (Aricept) 10 mg PO QPM [facility] Last Admin: 02/28/20 20:22 Dose: 10 mg Enoxaparin Sodium (Lovenox) 40 mg SUBQ DAILY [facility] Last Admin: 02/29/20 08:30 Dose: 40 mg Gabapentin (Neurontin) 600 mg PO BID [facility] Last Admin: 02/29/20 08:29 Dose: 600 mg Magnesium Oxide (Mag Ox) 400 mg PO DAILYWM [facility] Last Admin: 02/29/20 08:29 Dose: 400 mg Ondansetron HCl (Zofran Inj) 4 mg IVP Q6HR PRN PRN Reason: Nausea / Vomiting Sodium Chloride (Normal Saline Flush 0.9%) 10 ml IVP PRN PRN PRN Reason: NEEDED PER PROVIDER ORDERS Last Admin: 02/29/20 05:53 Dose: 10 ml Sodium Chloride (Normal Saline Flush 0.9%) 10 ml IVP 0100,0900,1700 [facility] Last Admin: 02/29/20 08:30 Dose: 10 ml Acetaminophen [Tylenol] 325 - 650 mg PO TID PRN 02/28/20 Amlodipine Besylate 10 mg PO DAILY 02/28/20 Atorvastatin Calcium 40 mg PO QPM 02/28/20 Benazepril HCl 20 mg PO DAILY 02/28/20 Cholecalciferol (Vitamin D3) [Vitamin D3] 2,000 unit PO DAILY 02/28/20 Cyanocobalamin (Vitamin B-12) [Vitamin B-12 (1000 mcg sublingual)] 1,000 mcg PO BID 02/28/20 Donepezil HCl 10 mg PO QPM 02/28/20 Gabapentin 600 mg PO BID 02/28/20 Prochlorperazine [Compazine] 5 mg PO TID PRN 02/28/20 Tramadol HCl 50 mg PO DAILY PRN 02/28/20 Triamcinolone 0.1% Cream [Kenalog 0.1% Cream] 1 applic TOP QPM PRN 02/28/20 Objective - Vital Signs/Intake & Output Reviewed Vital Signs: Yes Vital Signs: Vital Signs x48h Temp Pulse Resp BP BP Pulse Ox 02/29/20 07:42 97.2 C H 68 17 119/49 L 96 02/29/20 03:55 37.0 C 70 16 120/46 L 96 Intake & Output: Intake & Output 02/26/20 02/27/20 02/28/20 02/29/20 23:59 23:59 23:59 23:59 Intake Total 200 1775 Balance 200 1775 - Objective General Appearance: positive: No acute distress, Alert Eyes Bilateral: positive: Normal inspection, Conjunctivae nml ENT: positive: ENT inspection nml Neck: positive: Nml inspection Respiratory: positive: No respiratory distress. negative: Wheezes, Rales Cardiovascular: positive: Regular rate & rhythm, No murmur. negative: Systolic murmur, Diastolic murmur Abdomen: positive: Non-tender, No distention. negative: Tenderness Skin: positive: Warm, Dry Extremities: positive: Full ROM, No pedal edema Neurologic/Psychiatric: positive: Oriented x3, Other (She has 5 out of 5 strength in all 4 extremities. There is still a slight right-sided facial droop. No aphasia noted. Speech is normal.). negative: Disoriented to person, Disoriented to place, Disoriented to time - Lab Results Fish Bones: 02/29/20 05:38 02/29/20 05:38 Other Labs: Lab Results x24hrs 02/29/20 02/29/20 02/29/20 Range/Units 05:38 05:38 05:38 WBC 6.0 (4.8-10.8) x10^3/uL RBC 3.36 L (4.20-5.40) 10^6/uL Hgb 10.9 L (12.0-16.0) g/dL Hct 32.3 L (37.0-47.0) % MCV 96.1 (81.0-99.0) fL MCH 32.4 H (27.0-31.0) pg MCHC 33.7 (32.0-36.0) g/dL RDW 12.6 (12.0-15.0) % Plt Count 169 (130-450) 10^3/uL MPV 9.1 (7.9-10.8) fL Neut # (Auto) 3.7 (1.5-6.6) 10^3/uL Lymph # (Auto) 1.7 (1.5-3.5) 10^3/uL [place] # (Auto) 0.6 (0.0-1.0) 10^3/uL Eos # (Auto) 0.0 (0.0-0.7) 10^3/uL Baso # (Auto) 0.1 (0.0-0.1) 10^3/uL Absolute Nucleated RBC 0.00 x10^3/uL Nucleated RBC % 0.0 /100WBC PT (9.9-12.6) secs INR (0.8-1.2) APTT (24.9-33.3) secs Sodium 138 (135-145) mmol/L Potassium 3.5 (3.5-5.0) mmol/L Chloride 105 (101-111) mmol/L Carbon Dioxide 24 (21-32) mmol/L Anion Gap 9.0 (6-13) BUN 8 (6-20) mg/dL Creatinine 0.6 (0.4-1.0) mg/dL Estimated GFR (MDRD) 98 (>89) Glucose 116 H (70-100) mg/dL Glycated Hemoglobin 5.5 (4.6-6.2) % Estim Average Glucose 111 H (70-100) Calcium 8.7 (8.5-10.3) mg/dL Phosphorus 3.2 (2.5-4.6) mg/dL Magnesium 1.6 L (1.7-2.8) mg/dL Total Bilirubin (0.2-1.0) mg/dL AST (10-42) IU/L ALT (10-60) IU/L Alkaline Phosphatase (42-121) IU/L Troponin I High Sens (2.3-14.8) ng/L Total Protein (6.7-8.2) g/dL Albumin (3.2-5.5) g/dL Globulin (2.1-4.2) g/dL Albumin/Globulin Ratio (1.0-2.2) Triglycerides 78 ( - 149) mg/dL Cholesterol 169 ( - 199) mg/dL LDL Cholesterol, Calc 74 ( - 129) mg/dL VLDL Cholesterol 16 mg/dL HDL Cholesterol 79 (60 - ) mg/dL LDL/HDL Ratio 0.9 (<4.4) Cholesterol/HDL Ratio 2.1 (<4.4) Lipase (22-51) U/L 02/28/20 02/28/20 02/28/20 Range/Units 10:30 10:30 10:30 WBC (4.8-10.8) x10^3/uL RBC (4.20-5.40) 10^6/uL Hgb (12.0-16.0) g/dL Hct (37.0-47.0) % MCV (81.0-99.0) fL MCH (27.0-31.0) pg MCHC (32.0-36.0) g/dL RDW (12.0-15.0) % Plt Count (130-450) 10^3/uL MPV (7.9-10.8) fL Neut # (Auto) (1.5-6.6) 10^3/uL Lymph # (Auto) (1.5-3.5) 10^3/uL [place] # (Auto) (0.0-1.0) 10^3/uL Eos # (Auto) (0.0-0.7) 10^3/uL Baso # (Auto) (0.0-0.1) 10^3/uL Absolute Nucleated RBC x10^3/uL Nucleated RBC % /100WBC PT 10.8 (9.9-12.6) secs INR 0.9 (0.8-1.2) APTT 30.5 (24.9-33.3) secs Sodium 134 L (135-145) mmol/L Potassium 3.9 (3.5-5.0) mmol/L Chloride 102 (101-111) mmol/L Carbon Dioxide 21 (21-32) mmol/L Anion Gap 11.0 (6-13) BUN 12 (6-20) mg/dL Creatinine 0.6 (0.4-1.0) mg/dL Estimated GFR (MDRD) 98 (>89) Glucose 112 H (70-100) mg/dL Glycated Hemoglobin (4.6-6.2) % Estim Average Glucose (70-100) Calcium 8.8 (8.5-10.3) mg/dL Phosphorus (2.5-4.6) mg/dL Magnesium 1.8 (1.7-2.8) mg/dL Total Bilirubin 0.7 (0.2-1.0) mg/dL AST 18 (10-42) IU/L ALT 15 (10-60) IU/L Alkaline Phosphatase 68 (42-121) IU/L Troponin I High Sens 2.4 (2.3-14.8) ng/L Total Protein 7.1 (6.7-8.2) g/dL Albumin 4.1 (3.2-5.5) g/dL Globulin 3.0 (2.1-4.2) g/dL Albumin/Globulin Ratio 1.4 (1.0-2.2) Triglycerides ( - 149) mg/dL Cholesterol ( - 199) mg/dL LDL Cholesterol, Calc ( - 129) mg/dL VLDL Cholesterol mg/dL HDL Cholesterol (60 - ) mg/dL LDL/HDL Ratio (<4.4) Cholesterol/HDL Ratio (<4.4) Lipase 30 (22-51) U/L ABX Reporting Has patient been on IV antibiotics over the past 48 hours?: No Assessment/Plan - Problem List (1) CVA (cerebral vascular accident) Impression: Worsening her expressive aphasia has resolved. She does have a slight right- sided facial droop. MRI the brain showed an acute infarct within the left frontal lobe measuring 2.1 x 2.9 cm. She will continue on Plavix and Lipitor daily. She is not a diabetic and lipid panel was unremarkable. Her blood pressures also been controlled. There is no evidence of A. fib on telemetry and her echocardiogram was unremarkable. The plan was to discharge her today at [facility] but they are requesting that she be tested for the novel coronavirus prior to discharge. Unfortunate will delay her discharge until tomorrow as he will not have a result back until then. Qualifiers: CVA mechanism: occlusion Precerebral and cerebral artery: middle cerebral artery Laterality of affected vessel: left Qualified Code(s): I63.512 - Cerebral infarction due to unspecified occlusion or stenosis of left middle cerebral artery (2) Expressive aphasia Impression: This was likely secondary to her stroke. Fortunately it has resolved and her speech is back to baseline. (3) Hypertension Impression: She is actually been normotensive during this hospitalization. We will continue to hold her home benazepril and amlodipine. If she becomes hypertensive pneumonia resume these. If she remains normotensive at this hospitalization, then we will likely discontinue both antihypertensives on discharge until she has outpatient follow-up. (4) Neuropathy Impression: Stable. Continue gabapentin. (5) Mild cognitive impairment Impression: She is at her baseline with regards to mild cognitive impairment and memory loss. Continue Aricept.
[2020-02-29] MEDS: DONEPEZIL 5 MG TABLET PO SCH (20:26)
[2020-02-29] MEDS: ATORVASTATIN 40 MG TABLET PO SCH (20:26)
[2020-03-01] MEDS ORDERED: amLODIPine 5 MG TABLET PO SCH (09:00)
[2020-03-01] MEDS: CYANOCOBALAMIN 500 MCG TABLET PO SCH (09:18)
[2020-03-01] MEDS: GABAPENTIN 300 MG CAPSULE PO SCH (09:18)
[2020-03-01] MEDS: CLOPIDOGREL 75 MG TABLET PO SCH (09:18)
[2020-03-01] MEDS: MAGNESIUM OXIDE 400 MG TABLET PO SCH (09:19)
[2020-03-01] MEDS: ENOXAPARIN 40 MG/0.4 ML SYRINGE SUBQ SCH (09:19)
[2020-03-01] MEDS: SODIUM CHLORIDE FLUSH 0.9% 10 ML SYRINGE IVP SCH (09:19)
[2020-03-01] MEDS: CHOLECALCIFEROL 1,000 UNIT TABLET PO SCH (09:19)
--- NOTE | 2020-03-01 10:01 | DISCHARGE SUMMARY ---
"Discharge Summary Admit Date: 02/28/20 Discharge Date: 03/01/20 Discharging Provider: Abdi Dash Primary Care Provider: Hieu Gordon Code Status: Attempt Resuscitation Condition at Discharge: Good Discharge Disposition: SNF DC/Xfer Discharge Facility Name: [facility] - DIAGNOSES Admission Diagnoses: Cerebrovascular accident Expressive aphasia Hypertension Neuropathy Mild cognitive impairment Discharge Diagnoses with Status of Each Condition: Cerebrovascular accident - resolved. She was discharged on Plavix and Lipitor 80 mg given she has an allergy to aspirin. Hypertension - stable. She was discharged on amlodipine but her benazepril was discontinued as her blood pressure has been stable during this hospitalization. Neuropathy - stable. She will continue her home gabapentin. Mild cognitive impairment - stable. She will continue her home Aricept. - HPI History of Present Illness: This is a 74-year-old female with a past medical history significant for hypertension, neuropathy, dementia who presents from [facility] due to difficulty speaking. He was last seen normal yesterday evening at around 10 PM. This morning when she was awakened by the staff, she was found to have a right-sided facial droop and expressive aphasia. The patient states that she has never had similar symptoms in the past. She does not recall having a stroke before. She denies any headaches, blurry vision. She does have numbness which is chronic for her and for which she takes gabapentin. She reports no weakness in her upper or lower extremities. Denies any fevers, chills, nausea, vomiting, chest pain, dyspnea, rash. In the emergency department, she is on be afebrile temperature of 36.8 C. Her heart rate was 89. Her blood pressure is 123/64. She was not tachypneic and saturating well on room air. CT of the head showed no acute abnormalities but did show a remote lacunar infarct in the left cerebellar hemisphere. CT of the head showed occlusion of a distal left MCA M2 to M3 junction but no proximal large vessel occlusion. CTA of the neck was unremarkable. Her labs were unremarkable. Given her presentation and concern for stroke, medicine was consulted for admission. I did discuss goals of care the patient she would like to be a full code. - CONSULTS | PROCEDURES Consultations: OT Procedures: Echocardiogram showed an ejection fraction of 60-65%. No evidence of thrombus. No evidence of atrial shunt. MRI of the brain showed a small to moderate sized acute infarct of the left frontal lobe measuring 21 x 29 mm. Infarct is in the left MCA territory distribution. CTA of the head showed occlusion of a distal left MCA M2 to M3 junction but no proximal large vessel occlusion. CTA of the neck was unremarkable. - HOSPITAL COURSE Hospital Course: She was admitted for expressive aphasia secondary to suspected stroke. She was loaded with Plavix 300 mg and continued on 75 mg daily given she has an allergy to aspirin. She had been on Lipitor 40 mg at home and this was increased to 80 mg every evening. Fortunately, her expressive aphasia resolved and her speech returned to baseline. She did have a slight facial droop which also has significantly improved although still slightly present. She had no deficits in her extremities. An A1c was checked which was 5.5%. Her blood panel was unremarkable. MRI of the brain was obtained which showed an acute infarct within the left frontal lobe measuring 2.1 x 2.9 cm with no hemorrhagic transformation. This was in the left MCA territory distribution. We allowed for permissive hypertension for 24 hours. Her blood pressure remained stable and she was resumed on amlodipine but not her benazepril as her systolic has been in the 120s to low 130s. Echocardiogram was unremarkable and negative for shunt. She was monitored on telemetry during this hospitalization and there was no evidence of atrial fibrillation. She was checked for COVID-19 as requested by [facility] prior to her return which was negative. She did not have any skilled needs. She was discharged back [facility] on Plavix 75 mg daily, Lipitor 80 mg every evening. She was continued on her amlodipine but her benazepril was discontinued. It is recommended that she follow-up with her primary care provider within 1 week. - ALLERGIES Allergies/Adverse Reactions: Allergies Allergy/AdvReac Type Severity Reaction Status Date / Time Penicillins Allergy Emesis Verified 03/17/19 16:31 aspirin AdvReac Unknown Verified 02/28/20 10:18 codeine AdvReac Unknown Verified 02/28/20 10:19 hydrocodone [From Vicodin] AdvReac Nausea Verified 02/28/20 10:20 morphine AdvReac Nausea Verified 02/28/20 10:20 shellfish derived AdvReac Unknown Verified 02/28/20 10:20 thyme AdvReac Unknown Verified 02/28/20 10:20 - MEDICATIONS Home Medications: Ambulatory Orders Medication Instructions Recorded Confirmed Acetaminophen [Tylenol] 325 - 650 mg PO TID PRN 02/28/20 02/28/20 Amlodipine Besylate 10 mg PO DAILY 02/28/20 02/28/20 Cholecalciferol (Vitamin D3) 2,000 unit PO DAILY 02/28/20 02/28/20 [Vitamin D3] Cyanocobalamin (Vitamin B-12) 1,000 mcg PO BID 02/28/20 02/28/20 [Vitamin B-12 (1000 mcg sublingual)] Donepezil HCl 10 mg PO QPM 02/28/20 02/28/20 Gabapentin 600 mg PO BID 02/28/20 02/28/20 Prochlorperazine [Compazine] 5 mg PO TID PRN 02/28/20 02/28/20 Tramadol HCl 50 mg PO DAILY PRN 02/28/20 02/28/20 Triamcinolone 0.1% Cream [Kenalog 1 applic TOP QPM PRN 02/28/20 02/28/20 0.1% Cream] Atorvastatin Calcium [Lipitor] 80 mg PO QPM #30 tablet 03/01/20 Clopidogrel [Plavix] 75 mg PO DAILY #30 tablet 03/01/20 - PHYSICAL EXAM AT DISCHARGE General Appearance: positive: No acute distress, Alert Eyes Bilateral: positive: Normal inspection, Conjunctivae nml ENT: positive: ENT inspection nml Neck: positive: Nml inspection Respiratory: positive: No respiratory distress. negative: Wheezes, Rales, Rhonchi Cardiovascular: positive: Regular rate & rhythm, No murmur. negative: Tachycardia, Bradycardia, Systolic murmur Abdomen: positive: Non-tender, No distention. negative: Tenderness Skin: positive: No rash, Warm, Dry Extremities: positive: No pedal edema Neurologic/Psychiatric: positive: Other (She is able to move all 4 extremities and has 5 out of 5 motor strength. She continues have slight right-sided facial droop but otherwise is neurologically intact.). negative: Disoriented to person, Disoriented to place, Disoriented to time - LABS Result Diagrams: 02/29/20 05:38 02/29/20 05:38 - DIAGNOSTIC IMAGING Diagnostic Imaging Results: Final report reviewed - FOLLOW UP Follow Up: She was asked to follow-up with her primary care provider within 1 week. - TIME SPENT Time Spent in Discharge (Minutes): 35"
[2020-03-01 11:54] VITALS: BP 126/61
== END 2020-03-01 12:10 | disposition home or self-care (01) | DRG 66 ==
LOC: EDUNIT# → ED 09:49 → MS2 11:10
PROVIDERS: ADMIT Internal Medicine; ATTEND Internal Medicine
DX: I63.6 Cerebral infarction due to cerebral venous thrombosis, nonpyogenic (principal); I63.312 Cerebral infarction due to thrombosis of left middle cerebral artery; R47.01 Aphasia; R29.810 Facial weakness; G31.84 Mild cognitive impairment of uncertain or unknown etiology; R29.704 NIHSS score 4; I10 Essential (primary) hypertension; G62.9 Polyneuropathy, unspecified; Z03.818 Encounter for observation for suspected exposure to other biological agents ruled out; Z88.6 Allergy status to analgesic agent; Z79.899 Other long term (current) drug therapy
CPT/HCPCS: 36415; 70496; 70498; 70551; 80048; 80053; 80061; 83036; 83690; 83735; 84100; 84484; 85025; 85610; 85730; 92523; 92610; 93005; 93306; 97165; 99285; A9270; J1650; J7120; Q9967; U0004; 70450; 81599; 83721

== ENCOUNTER 2021-03-24 | Outpatient (CLI) | payer MEDICARE, MEDICAID | END 2021-03-24 07:50 | disposition home or self-care (01) | CPT/HCPCS: A0425; A0429 ==

== ENCOUNTER 2021-03-24 08:07 | Emergency (ER) | payer MEDICARE, MEDICAID ==
--- NOTE | 2021-03-24 08:36 | ED Physician Documentation ---
PD HPI LOWER EXT INJURY - Stated complaint Stated Complaint: GLF - Chief complaint Chief Complaint: Laceration - History obtained from History obtained from: Patient - History of Present Illness PD HPI LOW EXT INJURY LOCATION: Right, Thigh (laterally) Type of injury: Fall Where injury occurred: Home (she states she has neuropathy of both legs, so difficult position sense. Not weak per se, but does have stumbling and falls often. Has had prior neuro eval without diagnosis of the neuropathy. She stumbled and fell last night, with lac right thigh from falling against corner of stand.) Timing - onset: Last night Timing - details: Abrupt onset Improved by: Rest Worsened by: Palpating. No: Moving Associated symptoms: Numbness (chronic both legs from waist down). No: Weakness Similar symptoms before: Other (has had falls with bruised and small cuts frequently.) Recently seen: Not recently seen Review of Systems Constitutional: denies: Fever, Chills Nose: denies: Rhinorrhea / runny nose, Congestion Throat: denies: Sore throat Cardiac: denies: Chest pain / pressure Respiratory: denies: Cough Neurologic: denies: Focal weakness, Numbness, Altered mental status, Headache, Head injury, LOC PD PAST MEDICAL HISTORY - Past Medical History Cardiovascular: Hypertension, High cholesterol Respiratory: None Neuro: Dementia, Peripheral neuropathy Endocrine/Autoimmune: None Psych: None - Past Surgical History Past Surgical History: Yes HEENT: Tonsil/Adenoidectomy - Present Medications Home Medications: Ambulatory Orders Medication Instructions Recorded Confirmed Acetaminophen [Tylenol] 325 - 650 mg PO TID PRN 02/28/20 02/28/20 Amlodipine Besylate 10 mg PO DAILY 02/28/20 02/28/20 Cholecalciferol (Vitamin D3) 2,000 unit PO DAILY 02/28/20 02/28/20 [Vitamin D3] Cyanocobalamin (Vitamin B-12) 1,000 mcg PO BID 02/28/20 02/28/20 [Vitamin B-12 (1000 mcg sublingual)] Donepezil HCl 10 mg PO QPM 02/28/20 02/28/20 Gabapentin 600 mg PO BID 02/28/20 02/28/20 Prochlorperazine [Compazine] 5 mg PO TID PRN 02/28/20 02/28/20 Triamcinolone 0.1% Cream [Kenalog 1 applic TOP QPM PRN 02/28/20 02/28/20 0.1% Cream] Atorvastatin Calcium [Lipitor] 80 mg PO QPM #30 tablet 03/01/20 Clopidogrel [Plavix] 75 mg PO DAILY #30 tablet 03/01/20 - Allergies Allergies/Adverse Reactions: Allergies Allergy/AdvReac Type Severity Reaction Status Date / Time Penicillins Allergy Emesis Verified 03/24/21 08:17 aspirin AdvReac Unknown Verified 03/24/21 08:17 codeine AdvReac Unknown Verified 03/24/21 08:17 hydrocodone [From Vicodin] AdvReac Nausea Verified 03/24/21 08:17 morphine AdvReac Nausea Verified 03/24/21 08:17 shellfish derived AdvReac Unknown Verified 03/24/21 08:17 thyme AdvReac Unknown Verified 03/24/21 08:17 - Social History Does the pt smoke?: No Smoking Status: Never smoker Does the pt drink ETOH?: No Does the pt have substance abuse?: No PD ED PE NORMAL - Vitals Vital signs reviewed: Yes - General General: Alert and oriented X 3, No acute distress, Well developed/nourished - HEENT HEENT: Atraumatic - Neck Neck: Supple, no meningeal sign, No bony TTP - Derm Derm: Normal color, Warm and dry - Extremities Extremities: No edema, No calf tenderness / cord, Other (right lateral mid thigh with semicircular flap lac to muscle layer without FB and only minimal bleeding. Good flex and ext at knee against resistance without pain. ) - Neuro Neuro: Alert and oriented X 3, No motor deficit, No sensory deficit, Normal sp eech Results - Vitals Vitals: Vital Signs - 24 hr 03/24/21 03/24/21 08:12 11:23 Temperature 36.2 C L 36.7 C Heart Rate 91 89 Respiratory 15 16 Rate Blood Pressure 116/67 131/57 H O2 Saturation 99 99 Oxygen O2 Source Room air Procedures - Laceration (location) right lateral thigh Length in cm: 1.7 Wound type: Curved, Into muscle Neurovascular status: Motor intact, Vascular intact, Other (decreased sensation generally in both lower legs, baseline neuropathy per patient.) Tendon involvement: No: Tendon Injury Anesthesia: Lidocaine 1% with epi Wound preparation: Irrigated copiously NS, Wound explored, To the base. No: FB identified Skin layer closure: Nylon, Running, Size #-0 - enter number (4), Sutures - enter # (7) Other: Patient tolerated well, No complications, Dressing applied PD MEDICAL DECISION MAKING - ED course Complexity details: considered differential, d/w patient Departure - Departure Disposition: 01 Home, Self Care Clinical Impression: Neuropathy Fall from slip, trip, or stumble Qualifiers: Encounter type: initial encounter Qualified Code(s): W01.0XXA - Fall on same level from slipping, tripping and stumbling without subsequent striking against object, initial encounter Thigh laceration Qualifiers: Encounter type: initial encounter Laterality: right Qualified Code(s): S71.111A - Laceration without foreign body, right thigh, initial encounter Condition: Stable Record reviewed to determine appropriate education?: Yes Instructions: ED Laceration All Comments: It is okay to wash and shower. Clean off the wound twice a day with soap and water, or peroxide and water. Apply some antibiotic ointment to it to keep it moist. Also to watch for signs of infection such as purulence, redness or increasing pain. Return to your primary care or the ER at the specified time for suture removal. Suture removal 8 to 10 days. Discharge Date/Time: 03/24/21 11:25
[2021-03-24] MEDS ORDERED: LIDOCAINE 2%-EPI 1:100000 20 ML MDV SUBQ ONE (08:44)
[2021-03-24] MEDS ORDERED: LIDOCAINE 1%-EPI 1:100000 20 ML MDV SUBQ STA (08:59)
[2021-03-24] MEDS ORDERED: BACITRACIN ZINC OINT 1 PACKET TOP STA (09:26)
[2021-03-24 11:23] VITALS: BP 131/57
== END 2021-03-24 11:25 | disposition home or self-care (01) ==
LOC: EDUNIT# → ED 08:07
DX: S71.111A Laceration without foreign body, right thigh, initial encounter (principal); G62.9 Polyneuropathy, unspecified; W01.190A Fall on same level from slipping, tripping and stumbling with subsequent striking against furniture, initial encounter; Z91.81 History of falling; Y93.01 Activity, walking, marching and hiking; Y92.009 Unspecified place in unspecified non-institutional (private) residence as the place of occurrence of the external cause
CPT/HCPCS: 12001; 99282; 99283; A9270

== ENCOUNTER 2021-03-25 08:00 | Outpatient (CLI) | payer MEDICARE, MEDICAID ==
[2021-03-25 12:13] LABS: BASOPHILS # (AUTO) 0.1 10^3/uL (0.0-0.1); BASOPHILS % (AUTO) 0.7 %; EOSINOPHILS % (AUTO) 0.5 %; HCT - HEMATOCRIT 39.9 % (37.0-47.0); HGB - HEMOGLOBIN 13.3 g/dL (12.0-16.0); LYMPHOCYTES % (AUTO) 11.5 %; MEAN CORPUSCULAR HEMOGLOBIN 33.8 pg (27.0-31.0); MEAN CORPUSCULAR HGB CONC 33.3 g/dL (32.0-36.0); MEAN CORPUSCULAR VOLUME 101.3 fL (81.0-99.0); MEAN PLATELET VOLUME 9.2 fL (7.9-10.8); MONOCYTES # (AUTO) 0.9 10^3/uL (0.0-1.0); MONOCYTES % (AUTO) 11.1 %; NEUTROPHILS # (AUTO) 6.5 10^3/uL (1.5-6.6); PLT - PLATELET COUNT 282 10^3/uL (130-450); RED BLOOD COUNT 3.94 10^6/uL (4.20-5.40); RED CELL DISTRIBUTION WIDTH 13.3 % (12.0-15.0); WHITE BLOOD COUNT 8.5 x10^3/uL (4.8-10.8)
[2021-03-25 12:39] LABS: THYROID STIMULATING HORMONE 1.72 uIU/mL (0.34-5.60)
[2021-03-25 12:41] LABS: ALBUMIN 4.3 g/dL (3.2-5.5); ALBUMIN/GLOBULIN RATIO 1.2 (1.0-2.2); ALKALINE PHOSPHATASE 104 IU/L (42-121); ALT ALANINE AMINOTRANSFERASE 17 IU/L (10-60); AST ASPARTATE AMINOTRANSFERASE 27 IU/L (10-42); BILIRUBIN,TOTAL 1.2 mg/dL (0.2-1.0); BUN - BLOOD UREA NITROGEN 10 mg/dL (6-20); CALCIUM 9.5 mg/dL (8.5-10.3); CARBON DIOXIDE - CO2 24 mmol/L (21-32); CHLORIDE 100 mmol/L (101-111); CHOL/HDL RATIO 2.2 (<4.4); CHOLESTEROL 214 mg/dL; CREATININE 0.7 mg/dL (0.4-1.0); GFR - MDRD 82 (>89); GLUCOSE 123 mg/dL (70-100); HDL CHOLESTEROL 98 mg/dL; LDL CHOLESTEROL,CALCULATED 82 mg/dL; LDL/HDL RATIO 0.8 (<4.4); POTASSIUM 3.3 mmol/L (3.5-5.0); SODIUM 139 mmol/L (135-145); TOTAL PROTEIN 7.8 g/dL (6.7-8.2); TRIGLYCERIDES 170 mg/dL; VLDL CHOLESTEROL 34 mg/dL
== END 2021-03-25 23:59 | disposition home or self-care (01) ==
LOC: LAB.WCP 08:00
PROVIDERS: ATTEND Nurse Practitioner Family
DX: E78.5 Hyperlipidemia, unspecified (principal); E53.8 Deficiency of other specified B group vitamins; I10 Essential (primary) hypertension
CPT/HCPCS: 36415; 80053; 80061; 82607; 83721; 84443; 85025

== ENCOUNTER 2021-09-10 14:18 | Outpatient (CLI) | payer MEDICARE, MEDICAID | END 2021-09-10 14:19 | disposition critical access hospital (66) | LOC: EMS 14:18 | DX: S01.01XA Laceration without foreign body of scalp, initial encounter (principal); W18.39XA Other fall on same level, initial encounter; Y92.000 Kitchen of unspecified non-institutional (private) residence as the place of occurrence of the external cause | CPT/HCPCS: A0425; A0429 ==

== ENCOUNTER 2021-09-10 14:37 | Emergency (ER) | payer MEDICARE, MEDICAID ==
[2021-09-10] MEDS ORDERED: BUFFERED LIDOCAINE 10 ML SYRINGE SUBQ STA (15:36)
--- NOTE | 2021-09-10 16:13 | ED Physician Documentation ---
PD HPI HEAD INJURY - Stated complaint Stated Complaint: GLF/HEAD LAC - Chief complaint Chief Complaint: Laceration - History obtained from History obtained from: Patient - History of Present Illness Mechanism of head injury: Fell Where head injury occurred: Home Timing - onset: Today Location of injury: Left, Front Quality of pain: Pain Associated symptoms: Paresthesias (has peripheral neuropathy). No: LOC, AMS, Amnesia, Nausea / vomiting, Neck pain, Seizures, Ear drainage, Nasal drainage Symptoms improve with: Rest Symptoms worsen with: Palpation, Movement Contributing factors: No: Anticoagulated Similar symptoms before: Diagnosis (laceration concussion) Recently seen: Not recently seen - Additional information Additional information: 76-year-old female with a history of neuropathy was in her home when she tripped and fell forward striking her head against a cabinet. She did not have loss of consciousness she denies any nausea or vomiting she denies any headache and she denies any difficulty concentrating or lightheadedness or dizziness. She has a cut to her scalp. She is brought to the hospital by ambulance. She denies any pain in her neck. PD PAST MEDICAL HISTORY - Past Medical History Past Medical History: Yes Cardiovascular: Hypertension, High cholesterol Respiratory: None Neuro: Dementia, Peripheral neuropathy Endocrine/Autoimmune: None GI: None MAIL TELLER: None : None HEENT: None Psych: None Musculoskeletal: None Derm: None - Past Surgical History Past Surgical History: Yes HEENT: Tonsil/Adenoidectomy - Present Medications Home Medications: Ambulatory Orders Medication Instructions Recorded Confirmed Acetaminophen [Tylenol] 325 - 650 mg PO TID PRN 02/28/20 02/28/20 Amlodipine Besylate 10 mg PO DAILY 02/28/20 02/28/20 Cholecalciferol (Vitamin D3) 2,000 unit PO DAILY 02/28/20 02/28/20 [Vitamin D3] Cyanocobalamin (Vitamin B-12) 1,000 mcg PO BID 02/28/20 02/28/20 [Vitamin B-12 (1000 mcg sublingual)] Donepezil HCl 10 mg PO QPM 02/28/20 02/28/20 Gabapentin 600 mg PO BID 02/28/20 02/28/20 Prochlorperazine [Compazine] 5 mg PO TID PRN 02/28/20 02/28/20 Triamcinolone 0.1% Cream [Kenalog 1 applic TOP QPM PRN 02/28/20 02/28/20 0.1% Cream] Atorvastatin Calcium [Lipitor] 80 mg PO QPM #30 tablet 03/01/20 Clopidogrel [Plavix] 75 mg PO DAILY #30 tablet 03/01/20 - Allergies Allergies/Adverse Reactions: Allergies Allergy/AdvReac Type Severity Reaction Status Date / Time Penicillins Allergy Emesis Verified 09/10/21 14:48 aspirin AdvReac Unknown Verified 09/10/21 14:48 codeine AdvReac Unknown Verified 09/10/21 14:48 hydrocodone [From Vicodin] AdvReac Nausea Verified 09/10/21 14:48 morphine AdvReac Nausea Verified 09/10/21 14:48 shellfish derived AdvReac Unknown Verified 09/10/21 14:48 thyme AdvReac Unknown Verified 09/10/21 14:48 - Social History Does the pt smoke?: No Smoking Status: Never smoker Does the pt drink ETOH?: No Does the pt have substance abuse?: No - Immunizations Immunizations are current?: Yes - POLST Patient has POLST: No PD ED PE NORMAL - Vitals Vital signs reviewed: Yes (tachy) - General General: Alert and oriented X 3, No acute distress, Well developed/nourished - HEENT HEENT: PERRL, EOMI, Other (There is a bruise to the chin with ecchymosis and swelling there is no significant tenderness there is normal occlusion. There is a 4 cm laceration to the scalp above the hairline on the left side. This does not involve deeper structures there is no step-off or crepitance.) - Neck Neck: Supple, no meningeal sign, No bony TTP - Cardiac Cardiac: RRR, No murmur - Respiratory Respiratory: No respiratory distress, Clear bilaterally - Abdomen Abdomen: Soft, Non tender - Back Back: No CVA TTP, No spinal TTP - Derm Derm: Normal color, Warm and dry, No rash - Extremities Extremities: No deformity, No edema - Neuro Neuro: Alert and oriented X 3, roller inspector 2-12 intact, No motor deficit, No sensory deficit, Normal speech Eye Opening: Spontaneous Motor: Obeys Commands Verbal: Oriented GCS Score: 15 - Psych Psych: Normal mood, Normal affect Results - Vitals Vitals: Vital Signs - 24 hr 11/10/21 14:49 Temperature 36.7 C Heart Rate 101 H Respiratory 18 Rate Blood Pressure 129/60 O2 Saturation 100 Oxygen O2 Source Room air - Rads (name of study) CT head Radiology: Prelim report reviewed (Impression: No acute intracranial process. Moderate atrophy and chronic microvascular ischemic changes.), EMP read indepedently, See rad report Procedures - Laceration (location) scalp Length in cm: 4 Wound type: Curved, Flap, Clean Neurovascular status: Sensory intact, Motor intact, Vascular intact Anesthesia: Lidocaine 1%, With bicarb Wound preparation: Hibiclens, Irrigated copiously NS, Wound explored, To the base Skin layer closure: [place] Other: Patient tolerated well, No complications, Neurovascular intact, Tetanus UTD PD MEDICAL DECISION MAKING - ED course Complexity details: considered differential, d/w patient ED course: 76-year-old female with a history of neuropathy has struck her head on a cabinet door and lacerated her scalp. She denied any symptoms of concussion initially with no nausea headache difficulty concentrating or lightheaded and dizziness. At some point during her stay she acted a bit akathetic in I became concerned about her change in level of pain and obtained a CT scan of the head which was negative for evidence of intracranial hemorrhage. Her scalp wound was stapled she will follow up with her primary for staple removal. Departure - Departure Disposition: 01 Home, Self Care Clinical Impression: Scalp laceration Qualifiers: Encounter type: initial encounter Qualified Code(s): S01.01XA - Laceration without foreign body of scalp, initial encounter Concussion Qualifiers: Encounter type: initial encounter Loss of consciousness presence/duration: without LOC Qualified Code(s): S06.0X0A - Concussion without loss of consciousness, initial encounter Condition: Stable Instructions: ED Concussion, ED Laceration Scalp Stitch Or Stap Follow-Up: Marilyn Gil DO [Provider Admit Priv/Credential] - Comments: [place] will need to be removed in 7 to 10 days
--- NOTE | 2021-09-10 16:44 | CT Report ---
PROCEDURE: HEAD WO INDICATIONS: trauma TECHNIQUE: Noncontrast 4.5 mm thick angled axial sections acquired from the foramen magnum to the vertex. For r adiation dose reduction, the following was used: automated exposure control, adjustment of mA and/or kV according to patient size. COMPARISON: MR Head, CT Head 02/28/20, FINDINGS: Image quality: Excellent. The ventricular system and cortical sulci demonstrate atrophy, consistent for patient's stated age. There are areas of hypodensity in the periventricular and subcortical white matter. There is no acut e intra or extra-axial fluid collection. No acute hemorrhage, mass lesion or midline shift. Brainst em is unremarkable. Globes are symmetrical. Sinuses are aerated. Osseous structures are intact. IMPRESSION: 1. No acute intracranial process. 2. Moderate atrophy and chronic microvascular ischemic changes. Reviewed by: Kailyn Mcnair MD on 09/10/2021 4:43 PM PST Approved by: Kailyn Mcnair MD on 09/10/2021 4:43 PM PST Station ID: [id number]
[2021-09-10 18:35] VITALS: BP 132/77
== END 2021-09-10 18:35 | disposition home or self-care (01) ==
LOC: EDUNIT# → ED 14:37
DX: S01.01XA Laceration without foreign body of scalp, initial encounter (principal); S06.0X0A Concussion without loss of consciousness, initial encounter; W01.198A Fall on same level from slipping, tripping and stumbling with subsequent striking against other object, initial encounter; Y93.9 Activity, unspecified; Y92.009 Unspecified place in unspecified non-institutional (private) residence as the place of occurrence of the external cause
CPT/HCPCS: 12002; 99282; 99284

== ENCOUNTER 2022-11-10 15:18 | Outpatient (CLI) | payer MEDICARE, MEDICAID ==
--- NOTE | 2022-11-10 16:18 | DEXA Report ---
PROCEDURE: Dexa Spine and/or Hip INDICATIONS: POST MENOPAUSAL TECHNIQUE: Dual energy x-ray absorptiometry (DXA) was performed on a Bringme System. Regions measur ed are the AP Spine, femoral neck, and if needed forearm. COMPARISON: None. FINDINGS: Lumbar Spine: Bone Mineral Density 1.398 g/cm/cm,T score 1.8, normal Left Femoral Neck: Bone Mineral Density 0.713 g/cm/cm, T score -2.3, osteopenia Left Hip: Bone Mineral Density 0.765 g/cm/cm,T score -1.9, osteopenia (T score greater or equal to -1.0: NORMAL) (T score from -1.1 to -2.4: OSTEOPENIA) (T score less than or equal to -2.5 to: OSTEOPOROSIS) Impression: Osteopenia. Patients with diagnosis of osteoporosis or osteopenia should have regular bone mineral density assess ment. For those eligible for Medicare, routine testing is allowed once every 2 years. Testing frequ ency can be increased for patients who have rapidly progressing disease or for those who are receivin g medical therapy to restore bone mass. Reviewed by: Dyan Echeverria MD, PhD on 11/10/2022 4:16 PM PST Approved by: Dyan Echeverria MD, PhD on 11/10/2022 4:16 PM PST Station ID: [id number]
== END 2022-11-10 15:19 | disposition home or self-care (01) ==
LOC: DI 15:18
PROVIDERS: ATTEND Nurse Practitioner
DX: M85.89 Other specified disorders of bone density and structure, multiple sites (principal); Z78.0 Asymptomatic menopausal state

== ENCOUNTER 2023-03-13 15:59 | Outpatient (CLI) | payer MEDICARE, MEDICAID | END 2023-03-13 23:59 | disposition critical access hospital (66) | LOC: EMS 15:59 | DX: R07.89 Other chest pain (principal); R41.0 Disorientation, unspecified | CPT/HCPCS: A0425; A0428 ==

== ENCOUNTER 2023-03-13 16:45 | Emergency (ER) | payer MEDICARE, MEDICAID ==
[2023-03-13 16:53] VITALS: BP 150/69
--- NOTE | 2023-03-13 17:13 | ED Physician Documentation ---
History of Present Illness - Stated complaint Stated Complaint: CHEST PX - Chief complaint Chief Complaint: Cardiac - History obtained from History obtained from: Patient, EMS - Additonal information Additional information: 77-year-old woman with history of neuropathy presents for trouble breathing that is resolved. History is difficult as she is a vague historian, she says she was short of breath, does not know for how long, but does know that is resolved at this point. She says that often when her neuropathy "gets her, she gets short of breath. She is vague on how often this happens but she is clear that it is a recurrent phenomenon. She is more frustrated by the progression of her neuropathy. She does not know why she has it. She is not diabetic. 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 : None HEENT: None Psych: None Musculoskeletal: None Derm: None - Past Surgical History Past Surgical History: Yes HEENT: Tonsil/Adenoidectomy - Present Medications Home Medications: Ambulatory Orders Medication Instructions Recorded Confirmed Acetaminophen [Tylenol] 325 - 650 mg PO TID PRN 02/28/20 03/13/23 Amlodipine Besylate 10 mg PO DAILY 02/28/20 03/13/23 Cholecalciferol (Vitamin D3) 2,000 unit PO DAILY 02/28/20 03/13/23 [Vitamin D3] Cyanocobalamin (Vitamin B-12) 1,000 mcg PO BID 02/28/20 03/13/23 [Vitamin B-12 (1000 mcg sublingual)] Donepezil HCl 10 mg PO QPM 02/28/20 03/13/23 Gabapentin 600 mg PO BID 02/28/20 03/13/23 Prochlorperazine [Compazine] 5 mg PO TID PRN 02/28/20 03/13/23 Triamcinolone 0.1% Cream [Kenalog 1 applic TOP QPM PRN 02/28/20 03/13/23 0.1% Cream] Atorvastatin Calcium [Lipitor] 80 mg PO QPM #30 tablet 03/01/20 03/13/23 Clopidogrel [Plavix] 75 mg PO DAILY #30 tablet 03/01/20 03/13/23 - Allergies Allergies/Adverse Reactions: Allergies Allergy/AdvReac Type Severity Reaction Status Date / Time Penicillins Allergy Emesis Verified 03/13/23 16:53 aspirin AdvReac Unknown Verified 03/13/23 16:53 codeine AdvReac Unknown Verified 03/13/23 16:53 hydrocodone [From Vicodin] AdvReac Nausea Verified 03/13/23 16:53 morphine AdvReac Nausea Verified 03/13/23 16:53 shellfish derived AdvReac Unknown Verified 03/13/23 16:53 thyme AdvReac Unknown Verified 03/13/23 16:53 - Social History Does the pt smoke?: No Smoking Status: Never smoker Does the pt drink ETOH?: No Does the pt have substance abuse?: No - Immunizations Immunizations are current?: Yes - POLST Patient has POLST: No PD ED PE NORMAL - Vitals Vital signs reviewed: Yes - General General: Other (She is a vague slow historian who smells of alcohol) - HEENT HEENT: PERRL - Neck Neck: Supple, no meningeal sign, No bony TTP - Cardiac Cardiac: RRR, No murmur - Respiratory Respiratory: No respiratory distress, Clear bilaterally - Abdomen Abdomen: Normal bowel sounds, Soft, Non tender - Back Back: No CVA TTP - Derm Derm: Normal color, Warm and dry - Extremities Extremities: No edema, No calf tenderness / cord - Neuro Neuro: Other (Alert and oriented to person and place, vague on time and mediocre on events.) Eye Opening: Spontaneous Motor: Obeys Commands Verbal: Oriented GCS Score: 15 Results - Vitals Vitals: Vital Signs - 24 hr 03/13/23 16:50 Temperature 36.8 C Heart Rate 89 Respiratory 17 Rate Blood Pressure 150/69 H O2 Saturation 96 Oxygen O2 Source Room air - EKG (time done) 1650 EKG releavant findings:: EKG personally interpreted by author of this note. Relevant findings are: Rate: Rate (enter#) (63) Rhythm: NSR [place]: LAD Intervals: Other (IVCD) Ischemia: Non specific changes. No: ST elevation c/w ischemia, ST depression - Labs Labs: Laboratory Tests 03/13/23 03/13/23 16:55 17:19 WBC 6.6 RBC 3.88 L Hgb 12.5 Hct 38.0 MCV 97.9 MCH 32.2 H MCHC 32.9 RDW 15.1 H Plt Count TNP MPV 9.6 Neut # (Auto) 3.2 Lymph # (Auto) 2.4 [place] # (Auto) 0.8 Eos # (Auto) 0.1 Baso # (Auto) 0.1 Absolute Nucleated RBC 0.00 Nucleated RBC % 0.0 Manual Slide Review Indicated Platelet Estimate NORMAL (130-450,000) Platelet Morphology PLATELET CLUMPING RBC Morph Micro Appear NORMAL APPEARANCE Sodium 137 Potassium 3.6 Chloride 100 L Carbon Dioxide 19 L Anion Gap 18.0 H BUN 12 Creatinine 0.5 Estimated GFR (MDRD) 120 Glucose 88 Calcium 8.7 Total Bilirubin 0.6 AST 24 ALT 17 Alkaline Phosphatase 67 Total Protein 7.1 Albumin 4.0 Globulin 3.1 Albumin/Globulin Ratio 1.3 Ethyl Alcohol 273.7 PD Medical Decision Making - ED course ED course: 77-year-old woman was briefly short of breath today which she feels is related to her neuropathy. It is a chronic progressive neuropathy of unclear etiology. She smells of alcohol and this was corroborated with a blood alcohol level of 273. No specific cause of dyspnea was found and she was counseled to cease alcohol use. Departure - Departure Disposition: 01 Home, Self Care Clinical Impression: Alcohol intoxication Qualifiers: Complication of substance-induced condition: uncomplicated Qualified Code(s): F10.920 - Alcohol use, unspecified with intoxication, uncomplicated Dyspnea Qualifiers: Dyspnea type: shortness of breath Qualified Code(s): R06.02 - Shortness of breath Condition: Good Record reviewed to determine appropriate education?: Yes Instructions: ED Dyspnea Shortness of Breath, ED Alcohol Intoxication Comments: The only pertinent positive finding on your work-up today is that we found you to be intoxicated with a blood alcohol level of 273. For a woman of your size this is equivalent to approximately 10-12 drinks I would think, and for reference a level of 80 is where it becomes illegal to drive. Chronic alcoholism is a cause of neuropathy, so you should consider ceasing alcohol use given that it may be contributing to your neuropathy. Call your doctor to arrange a follow-up appointment, make the next available appointment. In the interim, return anytime if worse or if new symptoms develop. Discharge Date/Time: 03/13/23 18:48
[2023-03-13 17:43] LABS: BASOPHILS # (AUTO) 0.1 10^3/uL (0.0-0.1); BASOPHILS % (AUTO) 1.8 %; EOSINOPHILS # (AUTO) 0.1 10^3/uL (0.0-0.7); EOSINOPHILS % (AUTO) 0.9 %; HGB - HEMOGLOBIN 12.5 g/dL (12.0-16.0); LYMPHOCYTES # (AUTO) 2.4 10^3/uL (1.5-3.5); LYMPHOCYTES % (AUTO) 36.7 %; MEAN CORPUSCULAR HEMOGLOBIN 32.2 pg (27.0-31.0); MEAN CORPUSCULAR HGB CONC 32.9 g/dL (32.0-36.0); MEAN CORPUSCULAR VOLUME 97.9 fL (81.0-99.0); MEAN PLATELET VOLUME 9.6 fL (7.9-10.8); MONOCYTES # (AUTO) 0.8 10^3/uL (0.0-1.0); MONOCYTES % (AUTO) 11.4 %; NEUTROPHILS # (AUTO) 3.2 10^3/uL (1.5-6.6); RED BLOOD COUNT 3.88 10^6/uL (4.20-5.40); RED CELL DISTRIBUTION WIDTH 15.1 % (12.0-15.0); WHITE BLOOD COUNT 6.6 x10^3/uL (4.8-10.8)
[2023-03-13 17:44] LABS: SLIDE REVIEW? Indicated
[2023-03-13 17:46] LABS: ALBUMIN/GLOBULIN RATIO 1.3 (1.0-2.2); BILIRUBIN,TOTAL 0.6 mg/dL (0.2-1.0); CALCIUM 8.7 mg/dL (8.5-10.3); CREATININE 0.5 mg/dL (0.4-1.0); ETOH - ETHANOL 273.7 mg/dL; POTASSIUM 3.6 mmol/L (3.5-5.0); TOTAL PROTEIN 7.1 g/dL (6.7-8.2)
--- NOTE | 2023-03-13 17:56 | XRAY Report ---
PROCEDURE: Chest 1 View X-Ray INDICATIONS: dyspnea TECHNIQUE: One view of the chest was acquired. COMPARISON: None. FINDINGS: Surgical changes and devices: None. Lungs and pleura: No pleural effusions or pneumothorax. Lungs are clear. Mediastinum: Mediastinal contours appear normal. Heart size is normal. Bones and chest wall: No suspicious bony lesions. Age-appropriate degenerative changes are seen. O verlying soft tissues appear unremarkable. IMPRESSION: No acute cardiopulmonary process. Reviewed by: Santana Frost MD on 03/13/2023 4:54 PM [facility]DT Approved by: Santana Frost MD on 03/13/2023 4:54 PM AKDT Station ID: [id number]
[2023-03-13 18:11] LABS: PLATELET ESTIMATE, MANUAL NORMAL (130-450,000) (NORMAL); PLATELET MORPHOLOGY PLATELET CLUMPING (NORMAL); RBC MORPHOLOGY (MULTIPLE) NORMAL APPEARANCE (NORMAL)
== END 2023-03-13 18:48 | disposition home or self-care (01) ==
LOC: EDUNIT# → ED 16:45
DX: R06.02 Shortness of breath (principal); F10.920 Alcohol use, unspecified with intoxication, uncomplicated; Y90.8 Blood alcohol level of 240 mg/100 ml or more; I10 Essential (primary) hypertension; E78.00 Pure hypercholesterolemia, unspecified; F03.90 Unspecified dementia, unspecified severity, without behavioral disturbance, psychotic disturbance, mood disturbance, and anxiety; G62.9 Polyneuropathy, unspecified; Z79.899 Other long term (current) drug therapy
CPT/HCPCS: 36415; 71045; 80053; 85025; 93005; 99283; 99284; G0480; 80320

== ENCOUNTER 2023-06-12 10:20 | Outpatient (CLI) | payer MEDICARE, MEDICAID | END 2023-06-12 10:21 | disposition critical access hospital (66) | LOC: EMS 10:20 | DX: R41.82 Altered mental status, unspecified (principal); S00.83XA Contusion of other part of head, initial encounter; W19.XXXA Unspecified fall, initial encounter; Y92.099 Unspecified place in other non-institutional residence as the place of occurrence of the external cause | CPT/HCPCS: A0425; A0429 ==

== ENCOUNTER 2023-07-14 13:47 | Outpatient (CLI) | payer MEDICARE, MEDICAID ==
[2023-07-14 18:14] LABS: THYROID STIMULATING HORMONE 1.57 uIU/mL (0.34-5.60)
[2023-07-14 18:18] LABS: CHOL/HDL RATIO 2.3 (<4.4); CHOLESTEROL 167 mg/dL; HDL CHOLESTEROL 73 mg/dL; LDL CHOLESTEROL,CALCULATED 68 mg/dL; LDL/HDL RATIO 0.9 (<4.4); TRIGLYCERIDES 132 mg/dL (48-352); VLDL CHOLESTEROL 26 mg/dL
== END 2023-07-14 13:48 | disposition home or self-care (01) ==
LOC: LAB.N 13:47
PROVIDERS: ATTEND Nurse Practitioner
DX: E78.5 Hyperlipidemia, unspecified (principal); R53.83 Other fatigue; E53.8 Deficiency of other specified B group vitamins
CPT/HCPCS: 36415; 80061; 82607; 83721; 84443

== ENCOUNTER 2024-07-21 08:09 | Outpatient (CLI) | payer MEDICARE, MEDICAID ==
[2024-07-21 12:41] LABS: BASOPHILS # (AUTO) 0.1 10^3/uL (0.0-0.1); EOSINOPHILS # (AUTO) 0.1 10^3/uL (0.0-0.7); HCT - HEMATOCRIT 40.1 % (37.0-47.0); HGB - HEMOGLOBIN 12.9 g/dL (12.0-16.0); LYMPHOCYTES # (AUTO) 1.5 10^3/uL (1.5-3.5); LYMPHOCYTES % (AUTO) 19.9 %; MEAN CORPUSCULAR HEMOGLOBIN 29.8 pg (27.0-31.0); MEAN CORPUSCULAR HGB CONC 32.2 g/dL (32.0-36.0); MEAN CORPUSCULAR VOLUME 92.6 fL (81.0-99.0); MEAN PLATELET VOLUME 9.7 fL (7.9-10.8); MONOCYTES # (AUTO) 0.6 10^3/uL (0.0-1.0); MONOCYTES % (AUTO) 7.6 %; NEUTROPHILS # (AUTO) 5.4 10^3/uL (1.5-6.6); NEUTROPHILS % (AUTO) 70.1 %; PLT - PLATELET COUNT 292 10^3/uL (130-450); RED BLOOD COUNT 4.33 10^6/uL (4.20-5.40); RED CELL DISTRIBUTION WIDTH 12.2 % (12.0-15.0); WHITE BLOOD COUNT 7.6 x10^3/uL (4.8-10.8)
[2024-07-21 13:02] LABS: ALBUMIN 4.3 g/dL (3.2-5.5); ALBUMIN/GLOBULIN RATIO 1.7 (1.0-2.2); ALKALINE PHOSPHATASE 74 IU/L (42-121); ALT ALANINE AMINOTRANSFERASE 9 IU/L (10-60); AST ASPARTATE AMINOTRANSFERASE 13 IU/L (10-42); BILIRUBIN,TOTAL 0.6 mg/dL (0.2-1.0); BUN - BLOOD UREA NITROGEN 12 mg/dL (6-20); CALCIUM 10.1 mg/dL (8.5-10.3); CARBON DIOXIDE - CO2 27 mmol/L (21-32); CHLORIDE 106 mmol/L (101-111); CHOL/HDL RATIO 2.5 (<4.4); CHOLESTEROL 171 mg/dL; CREATININE 0.6 mg/dL (0.6-1.3); GFR - MDRD 97 (>89); GLUCOSE 123 mg/dL (74-104); HDL CHOLESTEROL 69 mg/dL; LDL CHOLESTEROL,CALCULATED 81 mg/dL; LDL/HDL RATIO 1.2 (<4.4); SODIUM 140 mmol/L (135-145); TOTAL PROTEIN 6.9 g/dL (6.4-8.9); TRIGLYCERIDES 105 mg/dL; VLDL CHOLESTEROL 21 mg/dL
[2024-07-21 13:13] LABS: THYROID STIMULATING HORMONE 1.44 uIU/mL (0.34-5.60)
== END 2024-07-21 08:10 | disposition home or self-care (01) ==
LOC: LAB.N 08:09
PROVIDERS: ATTEND Nurse Practitioner
DX: I10 Essential (primary) hypertension (principal); F10.20 Alcohol dependence, uncomplicated; E78.5 Hyperlipidemia, unspecified; E53.8 Deficiency of other specified B group vitamins; R53.83 Other fatigue; F03.90 Unspecified dementia, unspecified severity, without behavioral disturbance, psychotic disturbance, mood disturbance, and anxiety
CPT/HCPCS: 36415; 80053; 80061; 82607; 83721; 84443; 85025